=== PATIENT | male | born 1970 | race Two or more races ===

== ENCOUNTER 2017-04-27 10:23 | Emergency (ER) | payer SELFPAY ==
[2017-04-27 11:09] LABS: APPEARANCE HAZY (CLEAR); BILIRUBIN NEGATIVE (NEGATIVE); COLOR YELLOW (YELLOW); GLUCOSE NEGATIVE (NEGATIVE); KETONE NEGATIVE (NEGATIVE); NITRITE NEGATIVE (NEGATIVE); PROTEIN NEGATIVE (NEGATIVE)
[2017-04-27 11:11] LABS: BACTERIA MODERATE /hpf (NONE SEEN); EPITHELIAL CELLS 0-5 /hpf (0-5); RED CELLS - URINE 0-5 /hpf (0-5); WHITE CELLS - URINE 25-50 /hpf (0-5)
[2017-04-28 21:08] LABS: CHLAMYDIA TRACHOMATIS, NAA Negative (Negative)
[2017-05-03 18:06] LABS: AEROBE ID Final report (())
== END 2017-04-27 14:32 | disposition home or self-care (01) ==
LOC: D.ER 10:23
PROVIDERS: Family Medicine; Physician Assistant
DX: N34.2 Other urethritis (principal); N43.2 Other hydrocele; N45.3 Epididymo-orchitis

== ENCOUNTER 2019-07-27 21:31 | Inpatient (IN) | payer MEDICAID ==
[~2019-07-27] VITALS: Ht 167.6 cm; Wt 87.3 kg
[2019-07-27 22:29] LABS: BASOPHILS 0.2 % (0-2); EOSINOPHILS 0.1 % (0-7); HEMATOCRIT 31.4 % (42.0-54.0); HEMOGLOBIN 9.3 g/dL (13.5-17.5); IMMATURE GRANULOCYTES 0.2 % (0-5); LYMPHOCYTES 6.7 % (15-50); MCH 23.7 pg (26.0-34.0); MCHC 29.6 g/dL (31.0-37.0); MCV 79.9 fL (80.0-100.0); MEAN PLATELET VOLUME 10.5 fL (7.4-10.4); MONOCYTES 9.2 % (2-11); NEUTROPHILS 83.6 % (40-80); PLATELET COUNT 150 10x3/uL (130-400); RBC 3.93 10x6/uL (4.20-6.10); RDW 18.9 % (11.5-14.5); WBC 8.8 10x3/uL (4.8-10.8)
[2019-07-27 22:45] LABS: ANION GAP 15.3 mmol/L (8-16); BILIRUBIN - TOTAL 4.7 mg/dL (0.2-1.3); CALCIUM 8.6 mg/dL (8.5-10.1); CARBON DIOXIDE 23.7 mmol/L (21.0-32.0); CREATININE - SERUM 1.4 mg/dL (0.6-1.3)
--- NOTE | 2019-07-27 23:00 | NUR ---
PATIENT DISCONNECTED HIMSELF FROM THE MONITOR, UP WALKING IN HIS ROOM & IN THE OTERO, ENCOURAGED ON MANY OCCASSIONS TO FGO BACK TO HIS ROOM. nOT ABLE TO KEEP THE MONITOR ON THE PATIENT, NOT FOLLOWING DIRECTIONS. URINATED ON THE FLOOR, HE IS DRINKING FROM THE FAUCET IN HIS ROOM, ASKED THE PATIENT NO THE DRINK ANYTHING.
[2019-07-27 23:04] LABS: BILIRUBIN NEGATIVE (NEGATIVE); GLUCOSE NEGATIVE (NEGATIVE); KETONE NEGATIVE (NEGATIVE); NITRITE NEGATIVE (NEGATIVE); UROBILINOGEN 2 mg/dL (NORMAL)
[2019-07-27 23:06] LABS: BACTERIA MODERATE /hpf (NEGATIVE); EPITHELIAL CELLS 0-5 /hpf (0-5); RED CELLS - URINE RARE /hpf (0-5); WHITE CELLS - URINE 0-5 /hpf (NEGATIVE)
[2019-07-27 23:16] LABS: UDS - AMPHET NEGATIVE QUAL (NEGATIVE); UDS - BARB NEGATIVE QUAL (NEGATIVE); UDS - BENZO NEGATIVE QUAL (NEGATIVE); UDS - COCAINE NEGATIVE QUAL (NEGATIVE); UDS - OPIATE NEGATIVE QUAL (NEGATIVE); UDS - PCP NEGATIVE QUAL (NEGATIVE); UDS - THC POSITIVE QUAL (NEGATIVE)
[2019-07-27 23:30] LABS: MAGNESIUM - SERUM 1.7 mg/dL (1.8-2.4)
[2019-07-27 23:37] VITALS: BP 141/73
--- NOTE | 2019-07-27 23:55 | NUR ---
PT RESTING QUIETLY AT THIS MOMENT, LR INFUSING PER ORDER, ROCHEPHIN INFUSING PER ORDER, PATIENT IS ON THE MONITOR AT THIS TIME.
[2019-07-28] VITALS (18 sets, daily range): BP systolic 102–149; BP diastolic 48–89; Ht 167.6 cm; Wt 87.3 kg
--- NOTE | 2019-07-28 00:25 | NUR ---
PATIENT PULLED OUT HIS IV, NEW ONE ESTABLISHED. PATIENT GAGGING ON MEDICATION, BAG GIVEN, PATIENT IS SPITTING ON HIMSELF AND ON FLOOR.
--- NOTE | 2019-07-28 00:32 | NUR ---
ROCEPHIN INFUSION COMPLETED AT 0015
--- NOTE | 2019-07-28 01:39 | NUR ---
RECEIVED REPORT FROM BHARAT GIVENS AT 0010. RECEIVED TO UNIT AT 0030 ON STRETCHER. DISORIENTED X4. UNABLE TO ANSWER QUESTIONS. STARTED PULLING AT IV AND ATTEMPTING TO GET OOB. UNABLE TO REDIRECT AND UNABLE TO COMMUNICATE. REFUSED LACTULOSE. 2 EPISODES OF N/V UPON ARRIVAL. ZOFRAN GIVEN PER ORDERS. IV TO RT FA WITH LR AT 75CC/HR. Karthik SOLORION IN TO SEE PT. ASSESSMENT COMPLETED.
--- NOTE | 2019-07-28 03:00 | NUR ---
LAYING IN BED WITH EYES CLOSED. SITS UP AT TIMES. CONT TO BE CONFUSED AND NON VERBAL. LAB REPORTED POTASSIUM OF 1.7. BEATER WORKER HELPER LORENZO NOTIFIED WITH N.O FOR STAT REDRAW. WILL NOTIFY BEATER WORKER HELPER WITH RESULTS AND ORDERS.
[2019-07-28 03:12] LABS: BASOPHILS 0.3 % (0-2); EOSINOPHILS 0.3 % (0-7); HEMATOCRIT 26.7 % (42.0-54.0); HEMOGLOBIN 7.9 g/dL (13.5-17.5); IMMATURE GRANULOCYTES 0.3 % (0-5); MCH 23.6 pg (26.0-34.0); MCHC 29.6 g/dL (31.0-37.0); MCV 79.7 fL (80.0-100.0); MEAN PLATELET VOLUME 9.9 fL (7.4-10.4); MONOCYTES 11.3 % (2-11); NEUTROPHILS 73.8 % (40-80); PLATELET COUNT 117 10x3/uL (130-400); RBC 3.35 10x6/uL (4.20-6.10); RDW 19.1 % (11.5-14.5); WBC 7.1 10x3/uL (4.8-10.8)
[2019-07-28 03:20] LABS: APTT 45.9 SECONDS (22.8-39.4); INR 2.24 (0.85-1.17); PROTIME 24.5 SECONDS (11.6-15.0)
[2019-07-28 03:26] LABS: ALBUMIN 2.4 g/dL (3.4-5.0); ALKALINE PHOSPHATASE 84 U/L (30-120); ALT (SGPT) 21 U/L (10-68); BILIRUBIN - TOTAL 3.45 mg/dL (0.2-1.3); CALC OSMOLALITY 279 mosm/kg (275-300); CALCIUM 7.6 mg/dL (8.5-10.1); CARBON DIOXIDE 26.2 mmol/L (21.0-32.0); CHLORIDE - SERUM 103 mmol/L (98-107); CREATININE - SERUM 1.1 mg/dL (0.6-1.3); GLUCOSE 202 mg/dL (74-106); MAGNESIUM - SERUM 1.5 mg/dL (1.8-2.4); PHOSPHOROUS 1.9 mg/dL (2.5-4.9); PROTEIN - SERUM 7.4 g/dL (6.4-8.2); SODIUM 138 mmol/L (136-145); UREA NITROGEN 8 mg/dL (7-18); eGFR NON AFRICAN AMERICAN 76 mL/min (90-120)
[2019-07-28 03:30] LABS: POTASSIUM - SERUM 1.7 mmol/L (3.5-5.1)
[2019-07-28 13:43] LABS: HEMATOCRIT 26.7 % (42.0-54.0); HEMOGLOBIN 7.8 g/dL (13.5-17.5)
--- NOTE | 2019-07-28 18:18 | MORECARE ---
CASE MANAGEMENT DISCHARGE SUMMARY PATIENT: TEENA MAYO UNIT: [id number] ADM DATE: 07/27/19 AGE: 49 : 74 SEX: M ROOM/BED: D.2306 AUTHOR: DOUGLAS DOTSON PHYSICIAN: REFERRING PHYSICIAN: ADRI BALTAZAR MD DATE OF SERVICE: 07/28/19 Discharge Plan Patient Name: TEENA MAYO [facility] [facility] 1970 Planned Disposition: Home Anticipated Discharge Date: Discharge Date: Expected LOS: Initial Reviewer: [email or web address] Initial Review Date: 07/28/2019 Generated: 07/28/19 7:17 pm DCPIA - Discharge Planning Initial Assessment Updated by [email or web address]: Acacia Michelle on 07/28/19 6:17 pm * Is the patient Alert and Oriented? Yes * How many steps to enter\exit or inside your home? * PCP NO PCP * [facility] * Preadmission Environment Home Alone * ADLs Independent * Equipment None * List name and contact numbers for known caregivers / representatives who currently or will assist patient after discharge: ELHAM MAYO [facility] [phone] * Verbal permission to speak to the caregivers and representatives has been obtained from the patient. Yes * Community resources currently utilized None * Additional services required to return to the preadmission environment? No * Can the patient safely return to the preadmission environment? Yes * Has this patient been hospitalized within the prior 30 days at any hospital? No Patient Name: TEENA MAYO Page [phone] at 1818 All edits/amendments must be made on the electronic document DICTATION DATE: 07/28/191816 SECTION LEADER AND MACHINE SETTER: AMIE 07/28/191816 RPT#: [id number] DC DATE: STATUS: ADM IN [facility] [address] [place] [address] END OF REPORT
--- NOTE | 2019-07-28 18:28 | MORECARE ---
CASE MANAGEMENT DISCHARGE SUMMARY PATIENT: TEENA MAYO UNIT: [id number] ADM DATE: 07/27/19 AGE: 49 : 74 SEX: M ROOM/BED: D.2306 AUTHOR: MAURI,DOC PHYSICIAN: REFERRING PHYSICIAN: ADRI BALTAZAR MD DATE OF SERVICE: 07/28/19 Discharge Plan Patient Name: TEENA MAYO Facility: [facility]:[place] : 1970 Planned Disposition: Home Anticipated Discharge Date: Discharge Date: Expected LOS: Initial Reviewer: [email or web address] Initial Review Date: 07/28/2019 Generated: 07/28/19 7:27 pm Comments DCP- Discharge Planning Updated by [email or web address]: Acacia Michelle on 07/28/19 5:[address] Patient Name: TEENA MAYO Admission Status: ER Accout number: [id number] Admission Date: 07-27-2019 : 1970 Admission Diagnosis: Attending: ADRI BALTAZAR Current LOS: 1 Anticipated DC Date: Planned Disposition: Home Primary Insurance: UNINSURED DISCOUNT PLAN Discharge Planning Comments: CM met with patient at bedside after explaining CM role and obtaining verbal consent. Patient lives at home alone where he is independent with his care and plans to return there upon discharge. Patient feels this would be a safe discharge. CM discussed availability / needs of home health and medical equipment. Patient denies any discharge needs at this time. Patient states he will have his family drive him home upon discharge. CM contacted Robert with [employer] regarding insurance. He stated that he has not seen patient yet. Patient may need assistance with Medications upon discharge. CM will continue to follow and assist as needed with discharge planning / needs. Press Clippings Cutter And Paster: Acacia Michelle DCPIA - Discharge Planning Initial Assessment Updated by [email or web address]: Acacia Michelle on 07/28/19 6:17 pm * Is the patient Alert and Oriented? Yes * How many steps to enter\exit or inside your home? * PCP NO PCP * [facility] * Preadmission Environment Home Alone * ADLs Independent * Equipment None * List name and contact numbers for known caregivers / representatives who currently or will assist patient after discharge: ELHAM MAYO - SISTER - [phone] * Verbal permission to speak to the caregivers and representatives has been obtained from the patient. Yes * Community resources currently utilized None * Additional services required to return to the preadmission environment? No * Can the patient safely return to the preadmission environment? Yes * Has this patient been hospitalized within the prior 30 days at any hospital? No Last DP export: 07/28/19 5:18 p Patient Name: TEENA MAYO Page [phone] at 1828 All edits/amendments must be made on the electronic document DICTATION DATE: 07/28/191826 APPLICATION PROCESSOR: AMIE 07/28/191826 RPT#: [id number] DC DATE: STATUS: ADM IN [facility] [address] [place] [address] END OF REPORT
--- NOTE | 2019-07-28 19:00 | NUR ---
PT RESTING IN BED, DISORIENTED TO PLACE AND SITUATION. NO ACUTE DISTRESS NOTED AT THIS TIME. ASSESSMENT COMPLETE, SEE FLOWSHEET. PIV IN LT FOREARM, RT HAND, SEE IV FLOWSHEET. WILL CONTINUE TO MONITOR.
--- NOTE | 2019-07-28 21:00 | NUR ---
PT SITTING UP IN BED, FAMILY AT BEDSIDE. DISORIENTED TO SITUATION, PLEASANTLY CONFUSED. REORIENTED NEEDED.
[2019-07-28 21:22] LABS: HEMATOCRIT 25.7 % (42.0-54.0); HEMOGLOBIN 7.6 g/dL (13.5-17.5)
--- NOTE | 2019-07-28 23:00 | NUR ---
PT RESTING IN BED, NO ACUTE DISTRESS NOTED.
[2019-07-29] VITALS (17 sets, daily range): BP systolic 93–135; BP diastolic 43–99
--- NOTE | 2019-07-29 01:00 | NUR ---
PT RESTING IN BED, NO ACUTE DISTRESS NOTED AT THIS TIME. WILL CONTINUE TO MONITOR.
--- NOTE | 2019-07-29 03:00 | NUR ---
PT RESTING QUIETLY IN BED, NO ACUTE DISTRESS NOTED. WILL CONTINUE TO MONITOR.
--- NOTE | 2019-07-29 05:00 | NUR ---
PT RESTING IN BED, NO ACUTE DISTRESS NOTED.
[2019-07-29 05:01] LABS: BASOPHILS 0.6 % (0-2); EOSINOPHILS 7.1 % (0-7); HEMATOCRIT 22.2 % (42.0-54.0); IMMATURE GRANULOCYTES 0.2 % (0-5); LYMPHOCYTES 33.5 % (15-50); MCH 23.4 pg (26.0-34.0); MCHC 28.8 g/dL (31.0-37.0); MCV 81.3 fL (80.0-100.0); MEAN PLATELET VOLUME 10.3 fL (7.4-10.4); MONOCYTES 11.6 % (2-11); RBC 2.73 10x6/uL (4.20-6.10); RDW 19.9 % (11.5-14.5)
[2019-07-29 05:02] LABS: WBC 4.7 10x3/uL (4.8-10.8)
[2019-07-29 05:03] LABS: HEMOGLOBIN 6.4 g/dL (13.5-17.5); PLATELET COUNT 92 10x3/uL (130-400)
[2019-07-29 05:05] LABS: ALKALINE PHOSPHATASE 69 U/L (30-120); ALT (SGPT) 20 U/L (10-68); BILIRUBIN - TOTAL 2.76 mg/dL (0.2-1.3); CARBON DIOXIDE 20.8 mmol/L (21.0-32.0); CHLORIDE - SERUM 107 mmol/L (98-107); CREATININE - SERUM 0.9 mg/dL (0.6-1.3); PHOSPHOROUS 2.2 mg/dL (2.5-4.9); SODIUM 138 mmol/L (136-145); UREA NITROGEN 6 mg/dL (7-18); eGFR NON AFRICAN AMERICAN > 90 mL/min (90-120)
[2019-07-29 05:08] LABS: CALC OSMOLALITY 273 mosm/kg (275-300); GLUCOSE 91 mg/dL (74-106); MAGNESIUM - SERUM 2.1 mg/dL (1.8-2.4)
[2019-07-29 05:09] LABS: POTASSIUM - SERUM 2.4 mmol/L (3.5-5.1)
[2019-07-29 05:48] LABS: BASOPHILS 0.9 % (0-2); EOSINOPHILS 7.7 % (0-7); HEMATOCRIT 24.3 % (42.0-54.0); IMMATURE GRANULOCYTES 0.2 % (0-5); LYMPHOCYTES 32.5 % (15-50); MCH 23.7 pg (26.0-34.0); MCHC 29.6 g/dL (31.0-37.0); MCV 79.9 fL (80.0-100.0); MEAN PLATELET VOLUME 10.6 fL (7.4-10.4); MONOCYTES 10.7 % (2-11); PLATELET COUNT 101 10x3/uL (130-400); RBC 3.04 10x6/uL (4.20-6.10); RDW 19.6 % (11.5-14.5); WBC 4.7 10x3/uL (4.8-10.8)
[2019-07-29 05:50] LABS: HEMOGLOBIN 7.2 g/dL (13.5-17.5)
[2019-07-29 05:59] LABS: CALC OSMOLALITY 275 mosm/kg (275-300); CARBON DIOXIDE 22.2 mmol/L (21.0-32.0); CHLORIDE - SERUM 108 mmol/L (98-107); CREATININE - SERUM 0.9 mg/dL (0.6-1.3); GLUCOSE 93 mg/dL (74-106); SODIUM 139 mmol/L (136-145); UREA NITROGEN 6 mg/dL (7-18); eGFR NON AFRICAN AMERICAN > 90 mL/min (90-120)
[2019-07-29 06:04] LABS: PLATELET ESTIMATE NORMAL
[2019-07-29 06:07] LABS: CALCIUM 6.8 mg/dL (8.5-10.1); POTASSIUM - SERUM 2.6 mmol/L (3.5-5.1)
--- NOTE | 2019-07-29 06:14 | NUR ---
PAGEMerrill VENTURA APN REGARDING CRITICAL LAB VALUES.
--- NOTE | 2019-07-29 09:32 | NUR ---
Nutrition follow-up: Diet: REgular PO intake ~75% of breakfast Labs reviewed Wt: 148# Pt sleeping after breakfast; RDN did not disturb RDN following.
--- NOTE | 2019-07-29 13:29 | NUR ---
PT CONTINUES TO BE CONFUSED. FORGETS WHY HE IS IN AND HOSPITAL AND CAN'T GO HOME. BED ALARM TURNED ON. PT TRYING TO GET OUT OF BED. VSS. WILL CONTINUE TO MONITOR. CALLED PHARMACY TO SEND UP BANANA BAG.
[2019-07-29 13:33] LABS: HEMOGLOBIN 7.3 g/dL (13.5-17.5)
--- NOTE | 2019-07-29 17:52 | NUR ---
REPORT CALLED TO MONI ON MED 2. LAB IN TO DRAW POTASSIUM. WILL TRANSFER TO 2112.
--- NOTE | 2019-07-29 18:17 | NUR ---
PT ARRIVED TO FLOOR VIA WC. TRASNFERED SELF TO BED. USED URINAL. PT STATES HE HAS NO FURTHER NEEDS AT THIS TIME. BED LOW.C L IN REACH.
--- NOTE | 2019-07-29 18:26 | NUR ---
SPOKE WITH PHARMACIST AND THEY STATE PROTONIX DRIP IS NOT COMPATIBLE WITH BANANA BAG. THEY STATE TO WAIT TILL BANANA BAG IS FINISHED RUNNING THEN START NS 40K+ AND PROTONIX DRIP. I VERBALIZED UNDERSTANDING.
[2019-07-29 20:33] LABS: HEMATOCRIT 23.7 % (42.0-54.0)
[2019-07-29 20:57] LABS: HEMOGLOBIN 6.9 g/dL (13.5-17.5)
[2019-07-30 01:16] VITALS: BP 108/59
[2019-07-30 05:45] VITALS: BP 106/57
--- NOTE | 2019-07-30 07:00 | NUR ---
RECEIVED REPORT. ASSUMED CARE OF PATIENT. CALL LIGHT WITHING REACH. PATIENT RESTING IN BED ON RIGHT LATERAL SIDE. RESP EVEN AND UNLABORED. PATIENT EASILY AROUSED. NO DISTRESS. DENIES NEEDS.
[2019-07-30 07:11] LABS: BASOPHILS 0.9 % (0-2); EOSINOPHILS 7.2 % (0-7); HEMATOCRIT 28.3 % (42.0-54.0); IMMATURE GRANULOCYTES 0.2 % (0-5); MCH 24.4 pg (26.0-34.0); MCHC 30.4 g/dL (31.0-37.0); MCV 80.4 fL (80.0-100.0); MEAN PLATELET VOLUME 10.2 fL (7.4-10.4); MONOCYTES 13.3 % (2-11); NEUTROPHILS 50.4 % (40-80); RBC 3.52 10x6/uL (4.20-6.10); RDW 19.4 % (11.5-14.5); WBC 4.6 10x3/uL (4.8-10.8)
[2019-07-30 07:15] LABS: ALKALINE PHOSPHATASE 95 U/L (30-120); ALT (SGPT) 19 U/L (10-68); BILIRUBIN - TOTAL 2.57 mg/dL (0.2-1.3); CALCIUM 7.3 mg/dL (8.5-10.1); CARBON DIOXIDE 21.3 mmol/L (21.0-32.0); CHLORIDE - SERUM 109 mmol/L (98-107); CREATININE - SERUM 0.7 mg/dL (0.6-1.3); GLUCOSE 113 mg/dL (74-106); PHOSPHOROUS 1.7 mg/dL (2.5-4.9); PROTEIN - SERUM 6.2 g/dL (6.4-8.2); SODIUM 139 mmol/L (136-145); eGFR NON AFRICAN AMERICAN > 90 mL/min (90-120)
[2019-07-30 07:17] LABS: CALC OSMOLALITY 275 mosm/kg (275-300); UREA NITROGEN 4 mg/dL (7-18)
[2019-07-30 07:20] LABS: POTASSIUM - SERUM 2.4 mmol/L (3.5-5.1)
--- NOTE | 2019-07-30 07:21 | NUR ---
K+ CALLED FROM LAB, ELECTROLYTE PROTOCOL IMPLEMENTED.
[2019-07-30 07:29] LABS: HEMOGLOBIN 8.6 g/dL (13.5-17.5); PLATELET COUNT 80 10x3/uL (130-400)
[2019-07-30 07:49] LABS: PLATELET ESTIMATE DECREASED
[2019-07-30 08:53] LABS: BILIRUBIN NEGATIVE (NEGATIVE); GLUCOSE NEGATIVE (NEGATIVE); KETONE NEGATIVE (NEGATIVE); NITRITE NEGATIVE (NEGATIVE); SPECIFIC GRAVITY 1.005 (1.005-1.020); UROBILINOGEN 4 mg/dL (NORMAL)
[2019-07-30 09:04] VITALS: BP 118/57
--- NOTE | 2019-07-30 10:21 | NUR ---
K+ SUPPLEMENT #2 ADMINISTERED AT THIS TIME. NO DISTRESS. IV FLUIDS INFUSING ORDERED.
--- NOTE | 2019-07-30 13:30 | NUR ---
CALLED PHARMACY TO REQUEST MVI FOR INFUSION IT IS NOT AVAILABLE AT THIS TIME ON UNIT. PHARMACY TO HAVE FLUIDS TO UNIT SOON.
[2019-07-30 13:33] VITALS: BP 112/63
--- NOTE | 2019-07-30 16:22 | NUR ---
FSBS 100. NO INSULIN PER SLIDING SCALE.
[2019-07-30 20:00] VITALS: BP 123/51
[2019-07-31] VITALS: BP 128/60
[2019-07-31 04:00] VITALS: BP 113/62
[2019-07-31 05:59] LABS: BASOPHILS 0.7 % (0-2); EOSINOPHILS 6.5 % (0-7); HEMATOCRIT 30.5 % (42.0-54.0); HEMOGLOBIN 9.2 g/dL (13.5-17.5); IMMATURE GRANULOCYTES 0.2 % (0-5); LYMPHOCYTES 30.5 % (15-50); MCH 24.5 pg (26.0-34.0); MCHC 30.2 g/dL (31.0-37.0); MCV 81.1 fL (80.0-100.0); MONOCYTES 12.9 % (2-11); NEUTROPHILS 49.2 % (40-80); PLATELET COUNT 92 10x3/uL (130-400); RBC 3.76 10x6/uL (4.20-6.10); RDW 20.1 % (11.5-14.5); WBC 4.2 10x3/uL (4.8-10.8)
[2019-07-31 06:28] LABS: ALKALINE PHOSPHATASE 99 U/L (30-120); ALT (SGPT) 18 U/L (10-68); CALC OSMOLALITY 277 mosm/kg (275-300); CALCIUM 7.4 mg/dL (8.5-10.1); CARBON DIOXIDE 21.9 mmol/L (21.0-32.0); CHLORIDE - SERUM 111 mmol/L (98-107); CREATININE - SERUM 0.7 mg/dL (0.6-1.3); GLUCOSE 95 mg/dL (74-106); MAGNESIUM - SERUM 1.8 mg/dL (1.8-2.4); PHOSPHOROUS 1.8 mg/dL (2.5-4.9); POTASSIUM - SERUM 3.3 mmol/L (3.5-5.1); PROTEIN - SERUM 6.4 g/dL (6.4-8.2); SODIUM 141 mmol/L (136-145); UREA NITROGEN 5 mg/dL (7-18); eGFR NON AFRICAN AMERICAN > 90 mL/min (90-120)
--- NOTE | 2019-07-31 07:00 | NUR ---
RECEIVED REPORT. ASSUMED CARE OF PATIENT. CALL LIGHT WITHIN REACH. PATIENT RESTING WITH EYES CLOSED. RESP EVEN AND UNLABORED. IV FLUIDS INFUSING ORDERED. NO DISTRESS.
[2019-07-31 10:04] VITALS: BP 124/71
--- NOTE | 2019-07-31 11:30 | NUR ---
FSBS 133. NO INSULIN PER SLIDING SCALE. NO DISTRESS.
--- NOTE | 2019-07-31 12:20 | NUR ---
FAMILY AT BEDSIDE. CALL LIGHT WITHIN REACH. NO DISTRESS. CONSUMING NOON MEAL.
--- NOTE | 2019-07-31 12:27 | NUR ---
MONIKA CROWELL INITIATED THIS AM.
[2019-07-31] MEDS ORDERED: PROTONIX40 MG PO (12:28)
--- NOTE | 2019-07-31 13:40 | NUR ---
22 GAUGE IV REMOVED FROM LEFT FOREARM. CATHETER TIP INTACT. NO BLEEDING FROM SITE. 2X2 GAUZE APPLIED AND SECURED WITH BANDAID. TOLERATED IV REMOVAL WELL. PATIENT IS DISCHARGING TO HOME.
[2019-07-31 13:48] VITALS: BP 107/65
--- NOTE | 2019-07-31 13:52 | NUR ---
DISCHARGE INSTRUCTIONS PROVIDED TO PATIENT AT THIS TIME. PATIENT VERBALIZED UNDERSTANDING OF ALL INSTRUCTIONS PROVIDED. PATIENT IS CURRENTLY AWAITING FOR HIS FAMILY TO PICK HIM UP.
--- NOTE | 2019-07-31 13:58 | MORECARE ---
CASE MANAGEMENT DISCHARGE SUMMARY PATIENT: TEENA MAYO UNIT: [id number] ADM DATE: 07/27/19 AGE: 49 : 74 SEX: M ROOM/BED: D.4683 AUTHOR: MAURI,DOC PHYSICIAN: REFERRING PHYSICIAN: ADRI BALTAZAR MD DATE OF SERVICE: 07/31/19 Discharge Plan Patient Name: TEENA MAYO Facility: [facility]:[place] : 1970 Planned Disposition: Home Anticipated Discharge Date: Discharge Date: Expected LOS: Initial Reviewer: [email or web address] Initial Review Date: 07/28/2019 Generated: 07/31/19 2:58 pm Comments DCP- Discharge Planning Updated by [email or web address]: Acacia Michelle on 07/28/19 5:[address] Patient Name: TEENA MAYO Admission Status: ER Accout number: [id number] Admission Date: 07-27-2019 : 1970 Admission Diagnosis: Attending: ADRI BALTAZAR Current LOS: 1 Anticipated DC Date: Planned Disposition: Home Primary Insurance: UNINSURED DISCOUNT PLAN Discharge Planning Comments: CM met with patient at bedside after explaining CM role and obtaining verbal consent. Patient lives at home alone where he is independent with his care and plans to return there upon discharge. Patient feels this would be a safe discharge. CM discussed availability / needs of home health and medical equipment. Patient denies any discharge needs at this time. Patient states he will have his family drive him home upon discharge. CM contacted Robert with [employer] regarding insurance. He stated that he has not seen patient yet. Patient may need assistance with Medications upon discharge. CM will continue to follow and assist as needed with discharge planning / needs. Sheet Metal Superintendent: Acacia Michelle DCPIA - Discharge Planning Initial Assessment Updated by [email or web address]: Acacia Michelle on 07/28/19 6:17 pm * Is the patient Alert and Oriented? Yes * How many steps to enter\exit or inside your home? * PCP NO PCP * [facility] * Preadmission Environment Home Alone * ADLs Independent * Equipment None * List name and contact numbers for known caregivers / representatives who currently or will assist patient after discharge: ELHAM MAYO - SISTER - [phone] * Verbal permission to speak to the caregivers and representatives has been obtained from the patient. Yes * Community resources currently utilized None * Additional services required to return to the preadmission environment? No * Can the patient safely return to the preadmission environment? Yes * Has this patient been hospitalized within the prior 30 days at any hospital? No Last DP export: 07/28/19 5:28 p Patient Name: TEENA MAYO Page 84295 at 1358 All edits/amendments must be made on the electronic document DICTATION DATE: 07/31/19 1358 CULTURED MARBLE PRODUCTS MAKER: AMIE 07/31/19 1358 RPT#: [id number] DC DATE: STATUS: ADM IN [facility] [address] [place] [address] END OF REPORT
--- NOTE | 2019-07-31 14:05 | MORECARE ---
CASE MANAGEMENT DISCHARGE SUMMARY PATIENT: TEENA MAYO UNIT: [id number] ADM DATE: 07/27/19 AGE: 49 : 74 SEX: M ROOM/BED: D.6463 AUTHOR: MAURIDOC PHYSICIAN: REFERRING PHYSICIAN: ADRI BALTAZAR MD DATE OF SERVICE: 07/31/19 Discharge Plan Patient Name: TEENA MAYO Facility: [facility]:[place] : 1970 Planned Disposition: Home Anticipated Discharge Date: Discharge Date: Expected LOS: Initial Reviewer: [email or web address] Initial Review Date: 07/28/2019 Generated: 07/31/19 3:05 pm Comments DCP- Discharge Planning Updated by [email or web address]: Marilee Lemus on 07/31/19 12:[address] Patient Name: TEENA MAYO Encounter No: [id number] : 1970 Primary Insurance: MEDICAID [place] PENDING Anticipated DC Date: Planned Disposition: Home External Planned Provider: : DCP follow-up note: Patient and family in agreement with discharge plan. No changes to plan. GOOD RX CARD GIVEN. Case management will follow and assist as needed. Marilee Lemus DCP- Discharge Planning Updated by [email or web address]: Acacia Michelle on 07/28/19 5:[address] Patient Name: TEENA MAYO Admission Status: ER Accout number: [id number] Admission Date: 07-27-2019 : 1970 Admission Diagnosis: Attending: ADRI BALTAZAR Current LOS: 1 Anticipated DC Date: Planned Disposition: Home Primary Insurance: UNINSURED DISCOUNT PLAN Discharge Planning Comments: CM met with patient at bedside after explaining CM role and obtaining verbal consent. Patient lives at home alone where he is independent with his care and plans to return there upon discharge. Patient feels this would be a safe discharge. CM discussed availability / needs of home health and medical equipment. Patient denies any discharge needs at this time. Patient states he will have his family drive him home upon discharge. CM contacted Robert with [employer] regarding insurance. He stated that he has not seen patient yet. Patient may need assistance with Medications upon discharge. CM will continue to follow and assist as needed with discharge planning / needs. Plant Technician/Control Room Operator: Acacia Michelle DCPIA - Discharge Planning Initial Assessment Updated by [email or web address]: Acacia Michelle on 07/28/19 6:17 pm * Is the patient Alert and Oriented? Yes * How many steps to enter\exit or inside your home? * PCP NO PCP * [facility] * Preadmission Environment Home Alone * ADLs Independent * Equipment None * List name and contact numbers for known caregivers / representatives who currently or will assist patient after discharge: ELHAM MAYO - [facility] [phone] * Verbal permission to speak to the caregivers and representatives has been obtained from the patient. Yes * Community resources currently utilized None * Additional services required to return to the preadmission environment? No * Can the patient safely return to the preadmission environment? Yes * Has this patient been hospitalized within the prior 30 days at any hospital? No Last DP export: 07/31/19 12:58 p Patient Name: TEENA MAYO Page 25942 at 1405 All edits/amendments must be made on the electronic document DICTATION DATE: 07/31/19 1405 COMMUNITY SERVICE SPECIALIST: AMIE 07/31/19 1405 RPT#: [id number] DC DATE: STATUS: ADM IN [facility] [address] [place] [address] END OF REPORT
--- NOTE | 2019-07-31 15:40 | NUR ---
PATIENT LEFT UNIT VIA AMBULATORY. PATIENT DISCHARGED TO HOME. PATIENT LEFT UNIT WITH ALL PERSONAL BELONGINGS. PATIENTS SISTER WHO WORKS IN THE LAB, ELHAM, CAME TO MAKE SURE THAT THE PATIENT HAD LEFT. PATIENT LEFT NO PERSONAL BELONGINGS IN ROOM.
--- NOTE | 2019-07-31 17:09 | MORECARE ---
CASE MANAGEMENT DISCHARGE SUMMARY PATIENT: TEENA MAYO UNIT: [id number] ADM DATE: 07/27/19 AGE: 49 : 74 SEX: M ROOM/BED: D.2503 AUTHOR: MAURIDOC PHYSICIAN: REFERRING PHYSICIAN: ADRI BALTAZAR MD DATE OF SERVICE: 07/31/19 Discharge Plan Patient Name: TEENA MAYO Facility: [facility]:[place] : 1970 Planned Disposition: Home Anticipated Discharge Date: Discharge Date: 07/31/2019 Expected LOS: Initial Reviewer: [email or web address] Initial Review Date: 07/28/2019 Generated: 07/31/19 6:09 pm Comments DCP- Discharge Planning Updated by [email or web address]: Marilee Lemus on 07/31/19 12:[address] Patient Name: TEENA MAYO Encounter No: [id number] : 1970 Primary Insurance: MEDICAID [place] PENDING Anticipated DC Date: Planned Disposition: Home External Planned Provider: : DCP follow-up note: Patient and family in agreement with discharge plan. No changes to plan. GOOD RX CARD GIVEN. Case management will follow and assist as needed. Marilee Lemus DCP- Discharge Planning Updated by [email or web address]: Acacia Michelle on 07/28/19 5:[address] Patient Name: TEENA MAYO Admission Status: ER Accout number: [id number] Admission Date: 07-27-2019 : 1970 Admission Diagnosis: Attending: ADRI BALTAZAR Current LOS: 1 Anticipated DC Date: Planned Disposition: Home Primary Insurance: UNINSURED DISCOUNT PLAN Discharge Planning Comments: CM met with patient at bedside after explaining CM role and obtaining verbal consent. Patient lives at home alone where he is independent with his care and plans to return there upon discharge. Patient feels this would be a safe discharge. CM discussed availability / needs of home health and medical equipment. Patient denies any discharge needs at this time. Patient states he will have his family drive him home upon discharge. CM contacted Robert with [employer] regarding insurance. He stated that he has not seen patient yet. Patient may need assistance with Medications upon discharge. CM will continue to follow and assist as needed with discharge planning / needs. Spar Machine Operator Helper: Acacia Michelle DCPIA - Discharge Planning Initial Assessment Updated by [email or web address]: Acacia Michelle on 07/28/19 6:17 pm * Is the patient Alert and Oriented? Yes * How many steps to enter\exit or inside your home? * PCP NO PCP * [facility] * Preadmission Environment Home Alone * ADLs Independent * Equipment None * List name and contact numbers for known caregivers / representatives who currently or will assist patient after discharge: ELHAM MAYO - [facility] [phone] * Verbal permission to speak to the caregivers and representatives has been obtained from the patient. Yes * Community resources currently utilized None * Additional services required to return to the preadmission environment? No * Can the patient safely return to the preadmission environment? Yes * Has this patient been hospitalized within the prior 30 days at any hospital? No Last DP export: 07/31/19 1:05 p Patient Name: TEENA MAYO Page 78603 at 1709 All edits/amendments must be made on the electronic document DICTATION DATE: 07/31/191708 PRINT SHOP ASSISTANT: AMIE 07/31/191708 RPT#: [id number] MO DATE:07/31/19 STATUS: DIS IN [facility] [address] [place] [address] END OF REPORT
== END 2019-07-31 15:45 | disposition home or self-care (01) | DRG 640 ==
LOC: D.ER 21:31 → D.ICU 23:55 → D.M2 07-29 18:16
PROVIDERS: Emergency Medicine; ADMIT Internal Medicine Nephrology; ATTEND Internal Medicine Nephrology
DX: E87.6 Hypokalemia (principal); G92 Toxic encephalopathy; N17.9 Acute kidney failure, unspecified; N39.0 Urinary tract infection, site not specified; E83.42 Hypomagnesemia; E87.1 Hypo-osmolality and hyponatremia; E87.2 Acidosis; K72.90 Hepatic failure, unspecified without coma; D50.9 Iron deficiency anemia, unspecified; R73.9 Hyperglycemia, unspecified; K70.10 Alcoholic hepatitis without ascites

== ENCOUNTER 2019-08-22 23:33 | Inpatient (IN) | payer MEDICAID ==
[~2019-08-22] VITALS: Ht 167.6 cm; Wt 81.8 kg
[~2019-08-22 23:33] MED LIST: PROTONIX40 MG PO
[2019-08-23] VITALS (10 sets, daily range): BP systolic 98–121; BP diastolic 49–67; Ht 167.6 cm; Wt 81.8 kg
[2019-08-23 00:22] LABS: BILIRUBIN NEGATIVE (NEGATIVE); GLUCOSE NEGATIVE (NEGATIVE); KETONE NEGATIVE (NEGATIVE); NITRITE NEGATIVE (NEGATIVE); UROBILINOGEN NORMAL (NORMAL)
[2019-08-23 00:23] LABS: BASOPHILS 0.7 % (0-2); EOSINOPHILS 4.7 % (0-7); HEMATOCRIT 35.2 % (42.0-54.0); HEMOGLOBIN 10.8 g/dL (13.5-17.5); IMMATURE GRANULOCYTES 0.2 % (0-5); MCH 25.2 pg (26.0-34.0); MCHC 30.7 g/dL (31.0-37.0); MCV 82.2 fL (80.0-100.0); MEAN PLATELET VOLUME 9.8 fL (7.4-10.4); MONOCYTES 12.2 % (2-11); NEUTROPHILS 51.2 % (40-80); RBC 4.28 10x6/uL (4.20-6.10); RDW 22.4 % (11.5-14.5); WBC 5.5 10x3/uL (4.8-10.8)
[2019-08-23 00:26] LABS: PLATELET COUNT 122 10x3/uL (130-400)
[2019-08-23 00:39] LABS: UDS - AMPHET NEGATIVE QUAL (NEGATIVE); UDS - BARB NEGATIVE QUAL (NEGATIVE); UDS - BENZO NEGATIVE QUAL (NEGATIVE); UDS - COCAINE NEGATIVE QUAL (NEGATIVE); UDS - OPIATE NEGATIVE QUAL (NEGATIVE); UDS - PCP NEGATIVE QUAL (NEGATIVE); UDS - THC NEGATIVE QUAL (NEGATIVE)
[2019-08-23 00:54] LABS: ALBUMIN 2.7 g/dL (3.4-5.0); ALKALINE PHOSPHATASE 138 U/L (30-120); ALT (SGPT) 24 U/L (10-68); CALC OSMOLALITY 271 mosm/kg (275-300); CALCIUM 8.5 mg/dL (8.5-10.1); CARBON DIOXIDE 23.7 mmol/L (21.0-32.0); CHLORIDE - SERUM 102 mmol/L (98-107); CREATININE - SERUM 1.1 mg/dL (0.6-1.3); GLUCOSE 120 mg/dL (74-106); LIPASE 245 U/L (73-393); MAGNESIUM - SERUM 1.8 mg/dL (1.8-2.4); PROTEIN - SERUM 8.6 g/dL (6.4-8.2); SODIUM 137 mmol/L (136-145); UREA NITROGEN 4 mg/dL (7-18); eGFR NON AFRICAN AMERICAN 76 mL/min (90-120)
[2019-08-23 00:57] LABS: POTASSIUM - SERUM 2.3 mmol/L (3.5-5.1)
[2019-08-23 04:55] LABS: POTASSIUM - SERUM 2.9 mmol/L (3.5-5.1)
[2019-08-23 05:45] LABS: INR 1.82 (0.85-1.17); PROTIME 20.8 SECONDS (11.6-15.0)
[2019-08-23 05:48] LABS: CREATINE KINASE 1245 UL (21-232)
[2019-08-23 05:49] LABS: CKMB 4.1 U/L (0.0-3.6)
[2019-08-23 06:15] LABS: PHOSPHOROUS 2.5 mg/dL (2.5-4.9); URIC ACID 4.2 mg/dL (2.6-7.2)
--- NOTE | 2019-08-23 07:20 | NUR ---
PT ARIVED TO ROOM WITH ER STAFF. SELF TRANSFERED TO BED UP TO BATHROOM BY SELF. ALERT AND ORENTED PLESENT WITH STAFF. STATED NO HOME MEDS. IV TO RIGHT AC WITH BOLIS OF NS AND NS WITH 40 KCL AT 150 PER ORDERS.ORENTED TO ROOM AND CALL LIGHT GAVE NONSKID SCOKS.
--- NOTE | 2019-08-24 | NUR ---
194)REC'D CHGE OF SHIFT WALKING ROUNDS ON ENTERING ROOM STATES THIS THING HAS BEEN BEEPING FOR OVER AN HOUR.INSTRUCTED IV IS BEND OF ARM WHEN YOU BEND ARM FLUID HAS NO PLACE TO GO STATES THEY TOLD ME THAT EARLIER.WILL CONTINUE TO MONITOR FOR POSSIBLE DT'S. AND FOLLOW CURRENT PLAN OF CARE.
[2019-08-24 00:55] VITALS: BP 108/53
--- NOTE | 2019-08-24 05:11 | NUR ---
I have reviewed this patient and I concur with the Shift Assessment completed by the Licensed Practical Nurse today this shift.
[2019-08-24 06:20] LABS: HEMATOCRIT 28.6 % (42.0-54.0); MCH 24.9 pg (26.0-34.0); MCHC 29.7 g/dL (31.0-37.0); MCV 83.9 fL (80.0-100.0); MEAN PLATELET VOLUME 9.6 fL (7.4-10.4); RDW 22.5 % (11.5-14.5)
[2019-08-24 06:25] LABS: ALKALINE PHOSPHATASE 111 U/L (30-120); ALT (SGPT) 21 U/L (10-68); BILIRUBIN - TOTAL 1.41 mg/dL (0.2-1.3); CARBON DIOXIDE 23.8 mmol/L (21.0-32.0); CHLORIDE - SERUM 109 mmol/L (98-107); CREATININE - SERUM 0.9 mg/dL (0.6-1.3); GLUCOSE 99 mg/dL (74-106); SODIUM 141 mmol/L (136-145); eGFR NON AFRICAN AMERICAN > 90 mL/min (90-120)
[2019-08-24 06:34] LABS: HEMOGLOBIN 8.5 g/dL (13.5-17.5); PLATELET COUNT 149 10x3/uL (130-400); RBC 3.41 10x6/uL (4.20-6.10); WBC 3.4 10x3/uL (4.8-10.8)
[2019-08-24 06:39] LABS: UREA NITROGEN 7 mg/dL (7-18)
[2019-08-24 06:40] LABS: ALBUMIN 1.9 g/dL (3.4-5.0); CALC OSMOLALITY 278 mosm/kg (275-300); CREATINE KINASE 431 UL (21-232); PROTEIN - SERUM 6.2 g/dL (6.4-8.2)
[2019-08-24 06:41] LABS: POTASSIUM - SERUM 2.4 mmol/L (3.5-5.1)
[2019-08-24 06:42] LABS: CKMB 0.6 U/L (0.0-3.6)
--- NOTE | 2019-08-24 07:34 | NUR ---
PT RESTING IN BED WITH EYES CLOSED. RESP EVEN AND UNLABORED. DENIES PAIN AT THIS TIME. IV TO RIGHT AC WITH NS @ 100ML/HR INFUSING VIA PUMP. SITE WITHOUT REDNESS OR EDEMA. DENIES FURTHER NEEDS AT THIS TIME. CL WITHIN REACH. ENCOURAGED TO CALL WITH NEEDS. CONTINUE POC
[2019-08-24 07:54] LABS: EOSINOPHILS 4 % (0-7); LYMPHOCYTES 42 % (15-50); MONOCYTES 5 % (2-11); NEUTROPHILS 47 % (40-80); PLATELET ESTIMATE NORMAL
[2019-08-24 08:57] VITALS: BP 104/52
--- NOTE | 2019-08-24 09:05 | NUR ---
PT RESTING QUIETLY IN BED WITH EYES CLOSED. AWAKENS WITH NAME CALLED. RESP REMAIN EVEN AND UNLABORED. AM MEDS ADMINISTERED AT THIS TIME. DENIES FURTHER NEEDS AT THIS TIME. CL WITHIN REACH. ENCOURAGED TO CALL WITH NEEDS.
--- NOTE | 2019-08-24 11:27 | NUR ---
PT RESTING QUIETLY IN BED WITH EYES CLOSED. RESP EVEN AND UNLABORED. AWAKENS WITH NAME CALLED. POTASSIUM ADMINISTERED PER ELECTROLYTE PROTOCOL. DENIES FURTHER NEEDS AT THIS TIME. CL WITHIN REACH. ENCOURAGED TO CALL WITH NEEDS.
[2019-08-24 13:41] VITALS: BP 90/46
[2019-08-24 15:22] LABS: CREATINE KINASE 319 UL (21-232); POTASSIUM - SERUM 2.6 mmol/L (3.5-5.1)
[2019-08-24 15:23] LABS: CKMB 0.4 U/L (0.0-3.6)
--- NOTE | 2019-08-24 15:40 | NUR ---
DR. BALTAZAR PRESENT. REVIEWED LAB WORK. ORDERS RECIEVED FOR BANANA BAG Q 24 HOURS.
[2019-08-24 18:29] VITALS: BP 111/58
--- NOTE | 2019-08-24 20:25 | NUR ---
AMBULATING TO BR. ALERT AND ORIENTED X4. TELEMETRY SHOWS SR WITH RATE OF 62. DENIES PAIN. GEN WEAKNESS NOTED. BANANA BAG INFUSING IN RT AC @ 125 MLHR. RESP EVEN AND NONLABORED. NO DISTRESS. CL IN REACH.
[2019-08-24 21:28] LABS: CREATINE KINASE 251 UL (21-232)
[2019-08-24 21:33] LABS: CKMB 0.2 U/L (0.0-3.6)
[2019-08-24 21:49] VITALS: BP 115/59
[2019-08-25 01:49] VITALS: BP 115/62
--- NOTE | 2019-08-25 02:37 | NUR ---
HASNT SLEPT MUCH TONIGHT. DENIES PAIN. NO DISTRESS. NS @ 100 MLHR INFUSING IN RT AC. CL IN REACH.
[2019-08-25 06:01] VITALS: BP 121/73
[2019-08-25 07:44] LABS: BASOPHILS 0.9 % (0-2); EOSINOPHILS 6.7 % (0-7); HEMATOCRIT 29.2 % (42.0-54.0); HEMOGLOBIN 8.8 g/dL (13.5-17.5); LYMPHOCYTES 39.3 % (15-50); MCH 25.1 pg (26.0-34.0); MCHC 30.1 g/dL (31.0-37.0); MCV 83.4 fL (80.0-100.0); MEAN PLATELET VOLUME 9.5 fL (7.4-10.4); MONOCYTES 9.5 % (2-11); NEUTROPHILS 43.6 % (40-80); PLATELET COUNT 77 10x3/uL (130-400); RDW 22.7 % (11.5-14.5); WBC 3.3 10x3/uL (4.8-10.8)
[2019-08-25 07:47] LABS: ALBUMIN 1.8 g/dL (3.4-5.0); ALKALINE PHOSPHATASE 133 U/L (30-120); ALT (SGPT) 17 U/L (10-68); BILIRUBIN - TOTAL 1.23 mg/dL (0.2-1.3); CALCIUM 7.2 mg/dL (8.5-10.1); CARBON DIOXIDE 20.8 mmol/L (21.0-32.0); CHLORIDE - SERUM 112 mmol/L (98-107); CREATININE - SERUM 0.8 mg/dL (0.6-1.3); GLUCOSE 103 mg/dL (74-106); MAGNESIUM - SERUM 1.8 mg/dL (1.8-2.4); PHOSPHOROUS 2.1 mg/dL (2.5-4.9); PROTEIN - SERUM 6.3 g/dL (6.4-8.2); SODIUM 140 mmol/L (136-145); eGFR NON AFRICAN AMERICAN > 90 mL/min (90-120)
[2019-08-25 07:49] LABS: CALC OSMOLALITY 275 mosm/kg (275-300); UREA NITROGEN 5 mg/dL (7-18)
--- NOTE | 2019-08-25 08:00 | NUR ---
PATIENT EASILY AWAKENED TO VOICE. CL IN REACH. LAYING ON RIGHT SIDE. NO NEEDS AT THIS TIME. WCTM.
[2019-08-25 09:37] VITALS: BP 108/58
[2019-08-25 13:41] LABS: PLATELET ESTIMATE DECREASED
[2019-08-25 13:42] VITALS: BP 107/61
[2019-08-25 13:43] LABS: ANISOCYTOSIS OCC; HYPOCHROMASIA OCC
[2019-08-25 17:16] VITALS: BP 125/67
[2019-08-25 20:00] VITALS: BP 141/72
--- NOTE | 2019-08-25 22:01 | NUR ---
PT REPORTED THAT HE HAD 2 STOOLS WITH BLOOD IN THEM TODAY TO THIS NURSE HAT PLACED FOR COLECTING STOOL CALL TO HALL TENDER ORDER FOR OCCULT STOOL TO BE DONE. STOOL SENT TO LAB
[2019-08-26] VITALS: BP 128/65
[2019-08-26 04:00] VITALS: BP 111/51
--- NOTE | 2019-08-26 07:30 | NUR ---
PATIENT LAYING ON RIGHT SIDE. ASLEEP EASILY AWAKENED. CL IN REACH. NO NEEDS AT THIS TIME. WCTM
[2019-08-26 09:39] VITALS: BP 139/71
[2019-08-26 09:54] LABS: HEMATOCRIT 32.8 % (42.0-54.0); HEMOGLOBIN 9.9 g/dL (13.5-17.5); MCH 25.4 pg (26.0-34.0); MCHC 30.2 g/dL (31.0-37.0); MCV 84.1 fL (80.0-100.0); MEAN PLATELET VOLUME 9.6 fL (7.4-10.4); PLATELET COUNT 85 10x3/uL (130-400); WBC 2.8 10x3/uL (4.8-10.8)
[2019-08-26 10:36] LABS: ALBUMIN 2.2 g/dL (3.4-5.0); ALKALINE PHOSPHATASE 111 U/L (30-120); CALC OSMOLALITY 281 mosm/kg (275-300); CALCIUM 7.5 mg/dL (8.5-10.1); CARBON DIOXIDE 23.1 mmol/L (21.0-32.0); CHLORIDE - SERUM 111 mmol/L (98-107); GLUCOSE 90 mg/dL (74-106); MAGNESIUM - SERUM 1.8 mg/dL (1.8-2.4); PHOSPHOROUS 2.6 mg/dL (2.5-4.9); SODIUM 143 mmol/L (136-145); UREA NITROGEN 5 mg/dL (7-18); eGFR NON AFRICAN AMERICAN 85 mL/min (90-120)
[2019-08-26 10:42] LABS: ALT (SGPT) 22 U/L (10-68)
--- NOTE | 2019-08-26 11:04 | NUR ---
IV MAG AND K STARTED TO REPLACE ELECTROLYTE PROTOCOL. LAYING ON BACK IN BED. NO NEEDS AT THIS TIME. TM
[2019-08-26] MEDS ORDERED: POTASSIUM CHLO20 MEQ PO (11:50)
[2019-08-26 12:48] VITALS: BP 125/72
[2019-08-26 13:37] LABS: EOSINOPHILS 2 % (0-7); LYMPHOCYTES 35 % (15-50); MONOCYTES 9 % (2-11); NEUTROPHILS 53 % (40-80); PLATELET ESTIMATE DECREASED; ROULEAUX OCC
--- NOTE | 2019-08-26 14:49 | NUR ---
IV THERAPY DC'ED FROM LEFT AC TIP INTACT. PATIENT PROVIDED WITH A BUS PASS. HE HAD PREVIOUSLY STATED HE WAS GOING TO WALK TO HIS BROTHERS HOUSE. DISCHARGE INSTRUCTIONS GIVEN. PATIENT VERBALIZED UNDERSTANDING. WILL ALERT ME WHEN READY TO LEAVE.
--- NOTE | 2019-08-27 11:53 | MORECARE ---
CASE MANAGEMENT DISCHARGE SUMMARY PATIENT: TEENA MAYO UNIT: [id number] ADM DATE: 08/23/19 AGE: 49 : 74 SEX: M ROOM/BED: D.2204 AUTHOR: DOUGLAS DOTSON PHYSICIAN: REFERRING PHYSICIAN: ADRI BALTAZAR MD DATE OF SERVICE: 08/27/19 Discharge Plan Patient Name: TEENA MAYO [facility] : 1970 Planned Disposition: Home or Self Care Anticipated Discharge Date: Discharge Date: 08/26/2019 Expected LOS: Initial Reviewer: [email or web address] Initial Review Date: 08/26/2019 Generated: 08/27/19 12:53 pm Patient Name: TEENA MAYO Page 87389 at 1153 All edits/amendments must be made on the electronic document DICTATION DATE: 08/27/19 1153 GLASS FURNACE OPERATOR: AMIE 08/27/19 1153 RPT#: [id number] DC DATE:08/26/19 STATUS: DIS IN [facility] [address] [place] [address] END OF REPORT
== END 2019-08-26 20:07 | disposition home or self-care (01) | DRG 441 ==
LOC: D.ER 23:33 → D.MS 08-23 05:07 → OBSVTIME 08-23 05:07 → D.MS 08-23 05:09
PROVIDERS: Emergency Medicine; ADMIT Internal Medicine Nephrology; ATTEND Internal Medicine Nephrology
DX: K72.00 Acute and subacute hepatic failure without coma (principal); G92 Toxic encephalopathy; E44.0 Moderate protein-calorie malnutrition; N17.9 Acute kidney failure, unspecified; E87.6 Hypokalemia; K70.10 Alcoholic hepatitis without ascites

== ENCOUNTER 2019-08-27 23:44 | Emergency (ER) | payer MEDICAID ==
[~2019-08-27] VITALS: Ht 167.6 cm; Wt 85.9 kg
[~2019-08-27 23:44] MED LIST changes: +POTASSIUM CHLO20 MEQ PO
[2019-08-28 00:05] VITALS: Ht 167.6 cm; Wt 85.9 kg
[2019-08-28 00:23] LABS: BASOPHILS 0.6 % (0-2); EOSINOPHILS 4.3 % (0-7); HEMATOCRIT 35.3 % (42.0-54.0); HEMOGLOBIN 10.5 g/dL (13.5-17.5); IMMATURE GRANULOCYTES 0.2 % (0-5); LYMPHOCYTES 35.5 % (15-50); MCH 24.8 pg (26.0-34.0); MCHC 29.7 g/dL (31.0-37.0); MCV 83.3 fL (80.0-100.0); MEAN PLATELET VOLUME 9.1 fL (7.4-10.4); MONOCYTES 9.7 % (2-11); NEUTROPHILS 49.7 % (40-80); PLATELET COUNT 97 10x3/uL (130-400); RBC 4.24 10x6/uL (4.20-6.10); WBC 5.2 10x3/uL (4.8-10.8)
[2019-08-28 00:40] LABS: ALBUMIN 2.7 g/dL (3.4-5.0); ALKALINE PHOSPHATASE 122 U/L (30-120); ALT (SGPT) 22 U/L (10-68); BILIRUBIN - TOTAL 2.53 mg/dL (0.2-1.3); CALC OSMOLALITY 272 mosm/kg (275-300); CALCIUM 8.6 mg/dL (8.5-10.1); CARBON DIOXIDE 23.7 mmol/L (21.0-32.0); CHLORIDE - SERUM 103 mmol/L (98-107); CREATININE - SERUM 0.8 mg/dL (0.6-1.3); GLUCOSE 97 mg/dL (74-106); MAGNESIUM - SERUM 1.7 mg/dL (1.8-2.4); PROTEIN - SERUM 8.2 g/dL (6.4-8.2); SODIUM 138 mmol/L (136-145); UREA NITROGEN 4 mg/dL (7-18); eGFR NON AFRICAN AMERICAN > 90 mL/min (90-120)
[2019-08-28 00:48] LABS: POTASSIUM - SERUM 2.9 mmol/L (3.5-5.1)
[2019-08-28 00:52] LABS: PLATELET ESTIMATE DECREASED
[2019-08-28 02:56] LABS: BILIRUBIN NEGATIVE (NEGATIVE); GLUCOSE NEGATIVE (NEGATIVE); KETONE NEGATIVE (NEGATIVE); NITRITE NEGATIVE (NEGATIVE); UROBILINOGEN NORMAL (NORMAL)
[2019-08-28 03:05] LABS: UDS - AMPHET NEGATIVE QUAL (NEGATIVE); UDS - BARB NEGATIVE QUAL (NEGATIVE); UDS - BENZO POSITIVE QUAL (NEGATIVE); UDS - COCAINE NEGATIVE QUAL (NEGATIVE); UDS - OPIATE NEGATIVE QUAL (NEGATIVE); UDS - PCP NEGATIVE QUAL (NEGATIVE); UDS - THC NEGATIVE QUAL (NEGATIVE)
[2019-08-28 03:06] LABS: POTASSIUM - SERUM 3.5 mmol/L (3.5-5.1)
[2019-08-28 03:37] VITALS: BP 122/74
== END 2019-08-28 03:38 | disposition home or self-care (01) ==
LOC: D.ER 23:44
PROVIDERS: Emergency Medicine
DX: F10.129 Alcohol abuse with intoxication, unspecified (principal); Y90.6 Blood alcohol level of 120-199 mg/100 ml; D64.9 Anemia, unspecified; E87.6 Hypokalemia; E83.42 Hypomagnesemia; W19.XXXA Unspecified fall, initial encounter; Y93.9 Activity, unspecified; Y92.9 Unspecified place or not applicable

== ENCOUNTER 2019-09-25 01:23 | Emergency (ER) | payer MEDICAID ==
[~2019-09-25] VITALS: Ht 167.6 cm; Wt 84.1 kg
[2019-09-25 01:30] VITALS: Ht 167.6 cm; Wt 84.1 kg
[2019-09-25 01:48] LABS: BILIRUBIN NEGATIVE (NEGATIVE); GLUCOSE NEGATIVE (NEGATIVE); HEMATOCRIT 32.6 % (42.0-54.0); HEMOGLOBIN 10.1 g/dL (13.5-17.5); KETONE NEGATIVE (NEGATIVE); LYMPHOCYTES 36.4 % (15-50); MCH 26.6 pg (26.0-34.0); MEAN PLATELET VOLUME 9.7 fL (7.4-10.4); NEUTROPHILS 46.9 % (40-80); NITRITE NEGATIVE (NEGATIVE); PLATELET COUNT 100 10x3/uL (130-400); RBC 3.79 10x6/uL (4.20-6.10); RDW 20.4 % (11.5-14.5); SPECIFIC GRAVITY 1.005 (1.005-1.020); UROBILINOGEN NORMAL (NORMAL); WBC 3.8 10x3/uL (4.8-10.8)
[2019-09-25 02:04] LABS: ALBUMIN 2.7 g/dL (3.4-5.0); ALKALINE PHOSPHATASE 195 U/L (30-120); ALT (SGPT) 27 U/L (10-68); AMYLASE - SERUM 137 U/L (25-115); BILIRUBIN - TOTAL 2.19 mg/dL (0.2-1.3); CALC OSMOLALITY 271 mosm/kg (275-300); CALCIUM 8.6 mg/dL (8.5-10.1); CARBON DIOXIDE 27.5 mmol/L (21.0-32.0); CHLORIDE - SERUM 102 mmol/L (98-107); CREATININE - SERUM 0.8 mg/dL (0.6-1.3); GLUCOSE 142 mg/dL (74-106); LIPASE 231 U/L (73-393); PROTEIN - SERUM 8.2 g/dL (6.4-8.2); SODIUM 136 mmol/L (136-145); UREA NITROGEN 6 mg/dL (7-18); eGFR NON AFRICAN AMERICAN > 90 mL/min (90-120)
[2019-09-25 02:12] LABS: TROPONIN-I < 0.017 ng/mL (0.000-0.060)
[2019-09-25 02:23] LABS: POTASSIUM - SERUM 2.1 mmol/L (3.5-5.1)
[2019-09-25] MEDS ORDERED: NEXIUM40 MG PO (04:13)
[2019-09-25] MEDS ORDERED: K-DUR20 MEQ PO (04:15)
[2019-09-25 05:11] VITALS: BP 139/61
== END 2019-09-25 05:11 | disposition home or self-care (01) ==
LOC: D.ER 01:23
PROVIDERS: Surgery
DX: K29.20 Alcoholic gastritis without bleeding (principal); K74.60 Unspecified cirrhosis of liver; N20.0 Calculus of kidney; D61.818 Other pancytopenia; K76.6 Portal hypertension; R10.10 Upper abdominal pain, unspecified; R11.0 Nausea

== ENCOUNTER 2019-12-21 23:24 | Inpatient (IN) | payer OTHER ==
[~2019-12-21] VITALS: Ht 167.6 cm; Wt 85.5 kg
[~2019-12-21 23:24] MED LIST changes: +K-DUR20 MEQ PO; +NEXIUM40 MG PO
--- NOTE | 2019-12-22 00:31 | NUR ---
PT TO RADIOLOGY
[2019-12-22 00:38] LABS: UDS - AMPHET NEGATIVE QUAL (NEGATIVE); UDS - BARB NEGATIVE QUAL (NEGATIVE); UDS - BENZO NEGATIVE QUAL (NEGATIVE); UDS - COCAINE NEGATIVE QUAL (NEGATIVE); UDS - OPIATE NEGATIVE QUAL (NEGATIVE); UDS - PCP NEGATIVE QUAL (NEGATIVE); UDS - THC NEGATIVE QUAL (NEGATIVE)
[2019-12-22 00:46] LABS: BILIRUBIN NEGATIVE (NEGATIVE); GLUCOSE NEGATIVE (NEGATIVE); KETONE NEGATIVE (NEGATIVE); NITRITE NEGATIVE (NEGATIVE); UROBILINOGEN NORMAL (NORMAL)
--- NOTE | 2019-12-22 00:47 | NUR ---
PT RETURNED FROM RADIOLOGY.
[2019-12-22 00:48] LABS: BACTERIA NONE SEEN /hpf (NEGATIVE); EPITHELIAL CELLS NSEEN /hpf (0-5); RED CELLS - URINE 0-5 /hpf (0-5); WHITE CELLS - URINE 0-5 /hpf (NEGATIVE)
[2019-12-22 00:58] LABS: BASOPHILS 0.6 % (0-2); EOSINOPHILS 3.9 % (0-7); HEMATOCRIT 33.9 % (42.0-54.0); HEMOGLOBIN 10.8 g/dL (13.5-17.5); IMMATURE GRANULOCYTES 0.2 % (0-5); LYMPHOCYTES 22.3 % (15-50); MCH 27.8 pg (26.0-34.0); MCHC 31.9 g/dL (31.0-37.0); MCV 87.1 fL (80.0-100.0); MEAN PLATELET VOLUME 9.7 fL (7.4-10.4); MONOCYTES 11.2 % (2-11); NEUTROPHILS 61.8 % (40-80); PLATELET COUNT 81 10x3/uL (130-400); PLATELET ESTIMATE DECREASED; RBC 3.89 10x6/uL (4.20-6.10); RDW 17.7 % (11.5-14.5); WBC 4.7 10x3/uL (4.8-10.8)
[2019-12-22 01:00] VITALS: BP 138/71
--- NOTE | 2019-12-22 01:08 | NUR ---
PT GIVEN URINAL. DENIES ANY FURTHER NEEDS AT THIS TIME. CALL LIGHT WITHIN REACH. WILL CONTINUE TO MONITOR.
[2019-12-22 01:39] LABS: ALBUMIN 2.8 g/dL (3.4-5.0); ALKALINE PHOSPHATASE 162 U/L (30-120); ALT (SGPT) 18 U/L (10-68); BILIRUBIN - TOTAL 2.61 mg/dL (0.2-1.3); C-REACTIVE PROTEIN 1.4 mg/dL (0.0-0.9); CALC OSMOLALITY 275 mosm/kg (275-300); CALCIUM 8.6 mg/dL (8.5-10.1); CARBON DIOXIDE 23.6 mmol/L (21.0-32.0); CHLORIDE - SERUM 102 mmol/L (98-107); CREATINE KINASE 259 UL (21-232); GLUCOSE 168 mg/dL (74-106); LIPASE 92 U/L (73-393); MAGNESIUM - SERUM 1.7 mg/dL (1.8-2.4); SODIUM 137 mmol/L (136-145); THYROID STIMULATING HORMONE 2.14 uIU/mL (0.36-3.74); TROPONIN-I < 0.017 ng/mL (0.000-0.060); UREA NITROGEN 6 mg/dL (7-18); eGFR NON AFRICAN AMERICAN 85 mL/min (90-120)
[2019-12-22 01:40] LABS: CKMB 1.1 U/L (0.0-3.6); POTASSIUM - SERUM 2.1 mmol/L (3.5-5.1)
--- NOTE | 2019-12-22 02:22 | NUR ---
PT TO RADIOLOGY
--- NOTE | 2019-12-22 02:36 | NUR ---
PT RETURNED FROM RADIOLOGY.
--- NOTE | 2019-12-22 04:35 | NUR ---
SECOND BAG OF POTASSIUM CHLORIDE FINISHED AT THIS TIME.
[2019-12-22 05:22] VITALS: BP 142/62; BMI 27.7
[2019-12-22 09:12] VITALS: BP 115/54
--- NOTE | 2019-12-22 10:07 | NUR ---
PT TO IMAGING
--- NOTE | 2019-12-22 11:54 | NUR ---
I have reviewed this patient and I concur with the Shift Assessment completed by the Licensed Practical Nurse today this shift.
--- NOTE | 2019-12-22 13:20 | NUR ---
HUNG NEW IV POTASSIUM AND MAGNESIUM, PT RESTING COMFORTABLY IN BED. DENIES ANY NEEDS. WILL CONTINUE TO MONITOR.
[2019-12-22 13:21] VITALS: BP 115/58
[2019-12-22 13:52] VITALS: BMI 27.6
[2019-12-22 14:17] LABS: APTT 48.8 SECONDS (22.8-39.4); INR 1.88 (0.85-1.17); PROTIME 21.4 SECONDS (11.6-15.0)
--- NOTE | 2019-12-22 15:50 | NUR ---
HUNG IV POTASSIUM REPLACEMENT, BROUGHT NEW BAG OF FLUIDS. PT RESTING COMFORTABLY IN BED, AROUSES EASILY TO VOICE. DENIES ANY OTHER NEEDS. WILL CONTINUE TO MONITOR.
[2019-12-22 16:00] VITALS: BP 117/64
--- NOTE | 2019-12-22 17:49 | NUR ---
ADMINISTERED MEDICATION. GOT A CALL FROM ABHI GOODRICH TO TRANSFER PT FROM FLOOR TO THE UNIT.
--- NOTE | 2019-12-22 18:20 | NUR ---
HAVE MADE 2 PHONES CALLS TO DARA SHIN IN REFERENCE TO TRANSFERRING THIS PT, NO ANSWER. BHARAT, PEDIATRIC ONCOLOGIST CALLED DARA SHIN PRIOR TO LEAVING. STILL NO ROOM ASSIGNED.
[2019-12-22 18:23] LABS: MAGNESIUM - SERUM 2.5 mg/dL (1.8-2.4)
[2019-12-22 18:24] LABS: POTASSIUM - SERUM 2.5 mmol/L (3.5-5.1)
[2019-12-22 20:41] VITALS: BP 101/87; Ht 167.6 cm; Wt 85.5 kg
--- NOTE | 2019-12-23 01:18 | NUR ---
PT RECIEVED FROM MED 2 AT 1999. SEE ADMISSION ASSESSMENT FOR REFERENCE.
[2019-12-23 04:56] LABS: INR 1.82 (0.85-1.17); PROTIME 20.9 SECONDS (11.6-15.0)
[2019-12-23 05:05] LABS: ALBUMIN 2.2 g/dL (3.4-5.0); ALKALINE PHOSPHATASE 115 U/L (30-120); ALT (SGPT) 17 U/L (10-68); BILIRUBIN - TOTAL 2.49 mg/dL (0.2-1.3); CALC OSMOLALITY 284 mosm/kg (275-300); CARBON DIOXIDE 23.4 mmol/L (21.0-32.0); CHLORIDE - SERUM 111 mmol/L (98-107); CREATININE - SERUM 0.9 mg/dL (0.6-1.3); GLUCOSE 124 mg/dL (74-106); MAGNESIUM - SERUM 2.3 mg/dL (1.8-2.4); PROTEIN - SERUM 6.5 g/dL (6.4-8.2); SODIUM 144 mmol/L (136-145); UREA NITROGEN 5 mg/dL (7-18); eGFR NON AFRICAN AMERICAN > 90 mL/min (90-120)
[2019-12-23 05:10] LABS: CALCIUM 6.9 mg/dL (8.5-10.1)
[2019-12-23 05:11] LABS: POTASSIUM - SERUM 2.4 mmol/L (3.5-5.1)
[2019-12-23 05:35] LABS: BASOPHILS 0.8 % (0-2); EOSINOPHILS 7.6 % (0-7); HEMATOCRIT 29.3 % (42.0-54.0); HEMOGLOBIN 9.2 g/dL (13.5-17.5); IMMATURE GRANULOCYTES 0.3 % (0-5); LYMPHOCYTES 29.5 % (15-50); MCHC 31.4 g/dL (31.0-37.0); MEAN PLATELET VOLUME 10.4 fL (7.4-10.4); MONOCYTES 11.5 % (2-11); NEUTROPHILS 50.3 % (40-80); PLATELET COUNT 70 10x3/uL (130-400); RBC 3.29 10x6/uL (4.20-6.10); RDW 18.1 % (11.5-14.5); WBC 3.8 10x3/uL (4.8-10.8)
[2019-12-23 05:37] LABS: MCV 89.1 fL (80.0-100.0)
--- NOTE | 2019-12-23 08:05 | NUR ---
REPORT RECIEVED. PT SITTING UP ON SIDE OF THE BED. RR EVEN AND UNLABORED ON RA. DC PTS L AC PIV WITH CATH TIP FULLY INTACT. VASCULAR ACCESS ORDERS FOR MIDLINE. BED LOCKED AND IN LOWEST POSITION, CALL LIGHT WITHIN REACH. WILL CTM
[2019-12-23 08:41] VITALS: BP 160/96
--- NOTE | 2019-12-23 10:57 | NUR ---
Nutrition follow-up: Pt is now in ICU 2/2 low K; elevated NH3 of 132->ddown from 198 Labs reviewed WT: 188# Diet: low sodium with poor po intake at this time Banana bag RDN following.
[2019-12-23 11:36] VITALS: BP 129/74
--- NOTE | 2019-12-23 11:45 | NUR ---
MIDLINE PLACED IN L UPPER ARM X1 ATTEMPT. WILL CTM
[2019-12-23 14:10] LABS: ALPHA FETOPROTEIN -(TUMOR MRK) 6.9 ng/mL (0.0-8.3)
[2019-12-23 16:42] VITALS: BP 127/85
--- NOTE | 2019-12-23 21:00 | NUR ---
PT LYING IN BED, NO SX OF DISTRESS, MIDLINE IN LEFT UPPER ARM, NS AT 125. PT BROTHER CALLED FOR INFORMATION AND DID NOT HAVE CODE, EXPLAINED TO PT THAT I AM UNABLE TO PROVIDE INFORMATION BUT WILL TRANSFER HIM AFTER GETTING PT APPROVAL. NO OTHER NEEDS AT THIS TIME. CONTINUE WITH PLAN OF CARE
--- NOTE | 2019-12-24 04:37 | NUR ---
I have reviewed this patient and I concur with the Shift Assessment completed by the Licensed Practical Nurse today this shift.
[2019-12-24 05:15] LABS: BASOPHILS 0.7 % (0-2); HEMOGLOBIN 9.3 g/dL (13.5-17.5); LYMPHOCYTES 29.2 % (15-50); MCH 27.9 pg (26.0-34.0); MCV 90.1 fL (80.0-100.0); MEAN PLATELET VOLUME 9.6 fL (7.4-10.4); MONOCYTES 10.1 % (2-11); PLATELET COUNT 67 10x3/uL (130-400); RBC 3.33 10x6/uL (4.20-6.10); WBC 4.2 10x3/uL (4.8-10.8)
[2019-12-24 05:36] LABS: ALBUMIN 2.2 g/dL (3.4-5.0); ALKALINE PHOSPHATASE 127 U/L (30-120); ALT (SGPT) 17 U/L (10-68); BILIRUBIN - TOTAL 2.14 mg/dL (0.2-1.3); CALC OSMOLALITY 280 mosm/kg (275-300); CALCIUM 7.3 mg/dL (8.5-10.1); CARBON DIOXIDE 22.8 mmol/L (21.0-32.0); CHLORIDE - SERUM 111 mmol/L (98-107); CREATININE - SERUM 0.9 mg/dL (0.6-1.3); GLUCOSE 123 mg/dL (74-106); PROTEIN - SERUM 6.5 g/dL (6.4-8.2); SODIUM 142 mmol/L (136-145); UREA NITROGEN 4 mg/dL (7-18); eGFR NON AFRICAN AMERICAN > 90 mL/min (90-120)
[2019-12-24 05:47] LABS: PLATELET ESTIMATE DECREASED
[2019-12-24 05:52] LABS: MAGNESIUM - SERUM 1.7 mg/dL (1.8-2.4); POTASSIUM - SERUM 2.7 mmol/L (3.5-5.1)
--- NOTE | 2019-12-24 05:56 | NUR ---
PT K+ IS 2.7 AND MAG IS 1.7. REPLETE PER PROTOCOL CONTINUE WITH PLAN OF CARE
[2019-12-24 09:30] VITALS: BP 122/70
--- NOTE | 2019-12-24 09:48 | NUR ---
IN PT ROOM GIVING MORNING MEDS, NOTICED 06 DOSE OF KDUR AND MAG OX WERE STILL SITTING ON THE BEDSIDE TABLE. WOKE PT AND ADMINISTERED ALL MEDS. WILL GIVE SECOND DOSE ORDERED PER THIS DOSE TIME. BREATH SOUNDS CLEAR BILAT. ABDOMEN DISTENDED. IV TO LEFT UPPER ARM PATENT, DRESSING CDI. BED LOW, CALL LIGHT IN REACH. NO OTHER NEEDS AT THIS TIME.
[2019-12-24 14:10] VITALS: BP 133/70
[2019-12-24 18:04] VITALS: BP 125/67
--- NOTE | 2019-12-24 19:00 | NUR ---
BEDSIDE REPORT RECEIVED AND CARE OF PT ASSUMED. PT LYING IN LOW NOVAK'S POSITION WITH EYES CLOSED. IV TO LEFT UPPER ARM PATENT WITH NS W/ 40 KCL INFUSING AT 125 ML/HR. WILL MONITOR FOR NEEDS.
--- NOTE | 2019-12-24 20:41 | NUR ---
HS MEDICATIONS GIVEN. WILL CONTINUE TO MONITOR FOR NEEDS.
[2019-12-24 20:56] VITALS: BP 129/70
--- NOTE | 2019-12-24 21:05 | NUR ---
PT OPENED DOOR AND WAS COVERED WITH BLOOD AND DRIPPING BLOOD INTO THE HALLWAY...IV HAD COME DISCONNECTED. RE-CONNECTED IV AND CHANGED GOWN AND ALL BEDDING.
--- NOTE | 2019-12-24 21:30 | NUR ---
PT WITH NOSEBLEED...GAVE COLD WET CLOTH.
--- NOTE | 2019-12-24 22:56 | NUR ---
RE-CHECKED POTASSIUM AND MAG LEVEL: K+ NOW 3.1 REQUIRING COVERAGE WITH 40 MEQ K DUR PO. MAG LEVEL 1.7 REQUIRING COVERAGE WITH 400 MG PO Q4 HR X2 DOSES.
[2019-12-24 23:18] LABS: MAGNESIUM - SERUM 1.7 mg/dL (1.8-2.4); POTASSIUM - SERUM 3.1 mmol/L (3.5-5.1)
--- NOTE | 2019-12-24 23:28 | NUR ---
GAVE 400 MG MAG OX PO AND 40 MEQ K DUR PO PER THE ELECTROLYTE PROTOCOL.
[2019-12-25 00:01] VITALS: BP 146/72
[2019-12-25 05:46] LABS: BASOPHILS 0.3 % (0-2); EOSINOPHILS 4.7 % (0-7); HEMATOCRIT 30.6 % (42.0-54.0); HEMOGLOBIN 9.5 g/dL (13.5-17.5); LYMPHOCYTES 22.4 % (15-50); MCH 27.9 pg (26.0-34.0); MEAN PLATELET VOLUME 10.7 fL (7.4-10.4); MONOCYTES 9.3 % (2-11); NEUTROPHILS 63.3 % (40-80); PLATELET COUNT 76 10x3/uL (130-400); RDW 18.2 % (11.5-14.5); WBC 3.2 10x3/uL (4.8-10.8)
[2019-12-25 06:13] LABS: ALBUMIN 2.2 g/dL (3.4-5.0); ALKALINE PHOSPHATASE 118 U/L (30-120); ALT (SGPT) 18 U/L (10-68); BILIRUBIN - TOTAL 2.04 mg/dL (0.2-1.3); CALC OSMOLALITY 283 mosm/kg (275-300); CALCIUM 7.2 mg/dL (8.5-10.1); CARBON DIOXIDE 21.3 mmol/L (21.0-32.0); CHLORIDE - SERUM 112 mmol/L (98-107); CREATININE - SERUM 0.8 mg/dL (0.6-1.3); GLUCOSE 94 mg/dL (74-106); MAGNESIUM - SERUM 1.7 mg/dL (1.8-2.4); PROTEIN - SERUM 6.3 g/dL (6.4-8.2); SODIUM 144 mmol/L (136-145); UREA NITROGEN 3 mg/dL (7-18); eGFR NON AFRICAN AMERICAN > 90 mL/min (90-120)
[2019-12-25 13:17] VITALS: BP 116/63
[2019-12-25 18:52] VITALS: BP 130/66
--- NOTE | 2019-12-25 19:50 | NUR ---
LYING IN BED. REQUESTS SANDWICH. INSTRUCTED OF NPO AFTER MIDNIGHT AND HE VERBALIZED UNDERSTANDING. ALERT AND ORIENTED X1, SELF. CONFUSED. ABD IS DISTENDED AND FIRM. REPORTS DIARRHEA. TELEMTRY SHOWS SR WITH RATE OF 68. RATES PAIN IN AVD 5. AMBULATORY. NS WITH 40 MEQ KCL @ 125 ML/HR INFUSING IN LT UPPER ARM. SR ELEVATED X2. CL IN REACH.
[2019-12-25 22:01] VITALS: BP 123/52
--- NOTE | 2019-12-26 03:12 | NUR ---
SITTING UP IN BED WATCHING TV. NO DISTRESS. CL IN REACH.
[2019-12-26 03:55] VITALS: BP 112/64
[2019-12-26 05:13] LABS: BASOPHILS 0.3 % (0-2); EOSINOPHILS 5.4 % (0-7); HEMATOCRIT 29.1 % (42.0-54.0); HEMOGLOBIN 8.7 g/dL (13.5-17.5); LYMPHOCYTES 28.7 % (15-50); MCH 27.4 pg (26.0-34.0); MCHC 29.9 g/dL (31.0-37.0); MCV 91.5 fL (80.0-100.0); MONOCYTES 10.9 % (2-11); NEUTROPHILS 54.7 % (40-80); PLATELET COUNT 75 10x3/uL (130-400); RBC 3.18 10x6/uL (4.20-6.10); WBC 3.5 10x3/uL (4.8-10.8)
[2019-12-26 05:25] LABS: ALKALINE PHOSPHATASE 116 U/L (30-120); ALT (SGPT) 17 U/L (10-68); BILIRUBIN - TOTAL 1.51 mg/dL (0.2-1.3); CALC OSMOLALITY 283 mosm/kg (275-300); CALCIUM 7.5 mg/dL (8.5-10.1); CARBON DIOXIDE 20.8 mmol/L (21.0-32.0); CHLORIDE - SERUM 114 mmol/L (98-107); CREATININE - SERUM 0.9 mg/dL (0.6-1.3); GLUCOSE 127 mg/dL (74-106); MAGNESIUM - SERUM 1.8 mg/dL (1.8-2.4); POTASSIUM - SERUM 3.7 mmol/L (3.5-5.1); SODIUM 143 mmol/L (136-145); UREA NITROGEN 3 mg/dL (7-18); eGFR NON AFRICAN AMERICAN > 90 mL/min (90-120)
[2019-12-26 05:27] LABS: PLATELET ESTIMATE DECREASED
[2019-12-26 05:32] LABS: APTT 50.3 SECONDS (22.8-39.4); INR 1.96 (0.85-1.17); PROTIME 22.1 SECONDS (11.6-15.0)
--- NOTE | 2019-12-26 06:05 | NUR ---
RESTING WITH EYES CLOSED. RESP NONLABORED. HAS SLEPT WELL THIS SHIFT. NO DISTRESS. CL IN REACH.
[2019-12-26 09:10] VITALS: BP 91/41
--- NOTE | 2019-12-26 11:03 | NUR ---
RESTING IN BED, NPO FOR BIOPSY, MVI INFUSING, CONT TO MONITOR
[2019-12-26 11:54] VITALS: BP 99/46
[2019-12-26 16:22] VITALS: BP 110/63
[2019-12-26 20:00] VITALS: BP 119/60
--- NOTE | 2019-12-26 20:00 | NUR ---
PT LYING IN BED SLEEPING WITHOUT DISTRESS, AWAKENS WITH VERBAL STIMULI. AOX4. IV LEFT ARM INFUSING NS WITH 40K @ 125. DENIES NEEDS AT THIS TIME. CL IN REACH, WILL CTM
[2019-12-27] VITALS: BP 123/66
--- NOTE | 2019-12-27 00:30 | NUR ---
PT SITTING UP IN BED WATCHING TV. HAS BEEN UP AMBULATING TO BATHROOM SEVERAL TIMES TONIGHT WITH DIARRHEA. PROVIDED LEMON ALAKANUK SODA. DENIES OTHER NEEDS AT THIS TIME. CL IN REACH, WILL CTM
--- NOTE | 2019-12-27 03:16 | NUR ---
PT LYING IN BED SLEEPING WITHOUT DISTRESS, WILL CTM
[2019-12-27 04:00] VITALS: BP 127/64
[2019-12-27 05:39] LABS: INR 1.91 (0.85-1.17); PROTIME 21.6 SECONDS (11.6-15.0)
[2019-12-27 05:49] LABS: ALBUMIN 2.1 g/dL (3.4-5.0); ALKALINE PHOSPHATASE 120 U/L (30-120); ALT (SGPT) 15 U/L (10-68); BILIRUBIN - TOTAL 1.29 mg/dL (0.2-1.3); CALC OSMOLALITY 285 mosm/kg (275-300); CALCIUM 7.2 mg/dL (8.5-10.1); CARBON DIOXIDE 23.7 mmol/L (21.0-32.0); CHLORIDE - SERUM 114 mmol/L (98-107); CREATININE - SERUM 0.8 mg/dL (0.6-1.3); GLUCOSE 90 mg/dL (74-106); MAGNESIUM - SERUM 1.7 mg/dL (1.8-2.4); POTASSIUM - SERUM 3.5 mmol/L (3.5-5.1); PROTEIN - SERUM 6.2 g/dL (6.4-8.2); SODIUM 145 mmol/L (136-145); eGFR NON AFRICAN AMERICAN > 90 mL/min (90-120)
[2019-12-27 05:51] LABS: UREA NITROGEN 4 mg/dL (7-18)
[2019-12-27 05:59] LABS: BASOPHILS 0.3 % (0-2); EOSINOPHILS 6.4 % (0-7); HEMATOCRIT 30.2 % (42.0-54.0); HEMOGLOBIN 9.3 g/dL (13.5-17.5); IMMATURE GRANULOCYTES 0.3 % (0-5); LYMPHOCYTES 26.3 % (15-50); MCH 28.2 pg (26.0-34.0); MCHC 30.8 g/dL (31.0-37.0); MCV 91.5 fL (80.0-100.0); MEAN PLATELET VOLUME 9.4 fL (7.4-10.4); MONOCYTES 11.3 % (2-11); NEUTROPHILS 55.4 % (40-80); PLATELET COUNT 70 10x3/uL (130-400); WBC 3.3 10x3/uL (4.8-10.8)
[2019-12-27 08:00] VITALS: BP 121/59
[2019-12-27 08:24] LABS: PLATELET ESTIMATE DECREASED
--- NOTE | 2019-12-27 09:00 | NUR ---
PT SITTING UP IN BED, A&O X4. PIV IN LEFT UPPER ARM, PATENT, NO REDNESS OR SWELLING. PT ABLE TO AMBULATE WITH ONE PERSON ASSIST. TELEMETRY IN PLACE, 68 SR WITH 1ST DEGREE BLOCK. C/O OF SORENESS IN ABD, FREQUENT BM'S. EDUCATED PT ON LACTULOSE MED AND FREQUENT STOOL. EDUCATED PT ON CL AND NEEDS. BED LOW, RAILS X2. CL IN REACH, VERBALIZED UNDERSTANDING. WILL CONTINUE TO MONITOR.
--- NOTE | 2019-12-27 11:15 | NUR ---
ASSISTED PT TO CHAIR FOR LUNCH. EDUCATED PT ON IMPORTANCE OF STAYING IN CHAIR LONG CAN BE TOLERATED PER MD ORDERS, VERBALIZED UNDERSTANDING. CHAIR ALARM ON, CL IN REACH. WILL CONTINUE TO MONITOR.
--- NOTE | 2019-12-27 11:45 | NUR ---
ASSISTED PT TO BR, ONE PERSON ASSIST. BM, DAMIÁN, DANIELLE, PT TOLERATED WELL. ASSISTED TO BED, BED LOW, RAILS X2. CL IN REACH. WILL CONTINUE TO MONITOR.
[2019-12-27 13:31] VITALS: BP 129/61
--- NOTE | 2019-12-27 14:22 | MORECARE ---
CASE MANAGEMENT DISCHARGE SUMMARY PATIENT: TEENA MAYO UNIT: [id number] ADM DATE: 12/22/19 AGE: 49 : 74 SEX: M ROOM/BED: D.2214 AUTHOR: DOUGLAS DOTSON PHYSICIAN: REFERRING PHYSICIAN: MJ CÁRDENAS MD DATE OF SERVICE: 12/27/19 Discharge Plan Patient Name: TEENA MAYO Facility: [facility]:[place] : 1970 Planned Disposition: Home or Self Care Anticipated Discharge Date: Discharge Date: Expected LOS: Initial Reviewer: [email or web address] Initial Review Date: 12/22/2019 Generated: 12/27/19 3:21 pm DCPIA - Discharge Planning Initial Assessment Updated by [email or web address]: Tamar Yang on 12/27/19 2:20 pm * Is the patient Alert and Oriented? Yes * How many steps to enter\exit or inside your home? * PCP none * Pharmacy [facility] [address] * Preadmission Environment Home Alone * ADLs Independent * Equipment None * List name and contact numbers for known caregivers / representatives who currently or will assist patient after discharge: RADHA (SISTER) [phone] ELHAM (SISTER) [phone] * Verbal permission to speak to the caregivers and representatives has been obtained from the patient. N/A * Community resources currently utilized None * Additional services required to return to the preadmission environment? Yes * Can the patient safely return to the preadmission environment? Yes * Has this patient been hospitalized within the prior 30 days at any hospital? No Patient Name: TEENA MAYO Page 11985 at 1422 All edits/amendments must be made on the electronic document DICTATION DATE: 12/27/19 142 DIRECTOR ORACLE DATABASE: AMIE 12/27/19 142 RPT#: [id number] DC DATE: STATUS: ADM IN [facility] [address] [place] [address] END OF REPORT
--- NOTE | 2019-12-27 14:31 | MORECARE ---
CASE MANAGEMENT DISCHARGE SUMMARY PATIENT: TEENA MAYO UNIT: [id number] ADM DATE: 12/22/19 AGE: 49 : 74 SEX: M ROOM/BED: D.2214 AUTHOR: DOUGLAS DOTSON PHYSICIAN: REFERRING PHYSICIAN: MJ CÁRDENAS MD DATE OF SERVICE: 12/27/19 Discharge Plan Patient Name: TEENA MAYO Facility: [facility]:[place] : 1970 Planned Disposition: Home or Self Care Anticipated Discharge Date: Discharge Date: Expected LOS: Initial Reviewer: [email or web address] Initial Review Date: 12/22/2019 Generated: 12/27/19 3:30 pm Comments DCP- Discharge Planning Updated by [email or web address]: Tamar Yang on 12/27/19 1:[address] Patient Name: TEENA MAYO Admission Status: ER Accout number: [id number] Admission Date: 12-22-2019 : 1970 Admission Diagnosis: Attending: REDD Current LOS: 5 Anticipated DC Date: Planned Disposition: Home or Self Care Primary Insurance: [employer] MANAGED MEDICAID Discharge Planning Comments: CM met with patient to complete initial dc planning assessment. CM educated patient on the CM role and verbal consent given by patient to complete assessment. Patient lives at home by himself where he stated he was independent with his care. At discharge patient plans to return home and feels this is a safe discharge. CM discussed availability of home health, rehab services, and medical equipment. He is very slow to respond to my questions. He said he has 2 sisters and one might could pick him up when he is discharged, but he is unsure. He does not have a PCP either. We will see how he progresses, he might need some rehab. Patient denied known discharge needs at this time. CM will continue to follow and will assist as needed with dc plans/needs. Material Requirements Worker: Tamar Yang DCPIA - Discharge Planning Initial Assessment Updated by [email or web address]: Tamar Yang on 12/27/19 2:20 pm * Is the patient Alert and Oriented? Yes * How many steps to enter\exit or inside your home? * PCP none * Pharmacy [facility] [address] * Preadmission Environment Home Alone * ADLs Independent * Equipment None * List name and contact numbers for known caregivers / representatives who currently or will assist patient after discharge: RADHA (SISTER) [phone] ELHAM (SISTER) [phone] * Verbal permission to speak to the caregivers and representatives has been obtained from the patient. N/A * Community resources currently utilized None * Additional services required to return to the preadmission environment? Yes * Can the patient safely return to the preadmission environment? Yes * Has this patient been hospitalized within the prior 30 days at any hospital? No Last DP export: 12/27/19 1:21 p Patient Name: TEENA MAYO Page [phone] at 1431 All edits/amendments must be made on the electronic document DICTATION DATE: 12/27/191429 EXCEL ANALYST: MAIE 12/27/191429 RPT#: [id number] DC DATE: STATUS: ADM IN [facility] [address] [place] [address] END OF REPORT
--- NOTE | 2019-12-27 14:54 | NUR ---
Nutrition follow-up: Pt now on a regular diet with po intake 75-100% of meals Labs reviewed Wt: 188# +BM PO intake improved RDN following.
--- NOTE | 2019-12-27 15:39 | NUR ---
ASSISTED PT FROM CHAIR TO BED. PT DENIES PAIN. BED LOW, CL IN REACH. WILL CONTINUE TO MONITOR.
[2019-12-27 16:46] VITALS: BP 124/61
[2019-12-27 20:00] VITALS: BP 115/63
--- NOTE | 2019-12-27 20:00 | NUR ---
PT LYING IN BED RESTING WITHOUT DISTRESS, AOX4. IV LEFT UPPER ARM INFUSING NS KCL 40MEQ @ 125. PROVIDED WATER. DENIES OTHER NEEDS AT THIS TIME. CL IN REACH, WILL CTM
--- NOTE | 2019-12-28 01:00 | NUR ---
PT ASSISTED WITH SHOWER SET UP, DID CHG BATH FOR POSSIBLE PROCEDURE IN AM. REMINDED HE IS NPO AFTER MN. TELE ON. PROVIDED NEW NON SLIP SOCKS. DENIES OTHER NEEDS AT THIS TIME. CL IN REACH, WILL CTM
[2019-12-28 04:00] VITALS: BP 111/52
[2019-12-28 06:36] LABS: APTT 42.7 SECONDS (22.8-39.4); INR 1.99 (0.85-1.17); PROTIME 22.3 SECONDS (11.6-15.0)
--- NOTE | 2019-12-28 09:02 | NUR ---
ASSESSMENT PER FLOW SHEET. MEDS ORDERED.FFP INITIATED. PATIENT WITHOUT REACTIONS. MONITOR FOR NEEDS.NPO EXCEPT SIP OF WATER WITH MEDS.
[2019-12-28 10:09] VITALS: BP 110/57
--- NOTE | 2019-12-28 11:28 | NUR ---
AFTER REVIEW OF PT'S PT/INR AND PTT THE RESULTS WERE DISCUSSED WITH DR. Willi ROSE WHO DECIDED THE PATIENT WAS TO UNSTABLE TO PROCEED WITH THE LIVER BIOPSY PLANNED TODAY. THIS WAS DISCUSSED WITH DR. HERMAN WHO WAS OK WITH NOT PERFORMING THE BIOPSY AND SHE STATED SHE WOULD GIVE VITAMIN K.
[2019-12-28 12:24] LABS: ALBUMIN 2.1 g/dL (3.4-5.0); ALKALINE PHOSPHATASE 116 U/L (30-120); ALT (SGPT) 15 U/L (10-68); BILIRUBIN - TOTAL 1.22 mg/dL (0.2-1.3); CALC OSMOLALITY 278 mosm/kg (275-300); CALCIUM 7.7 mg/dL (8.5-10.1); CARBON DIOXIDE 23.1 mmol/L (21.0-32.0); CHLORIDE - SERUM 112 mmol/L (98-107); CREATININE - SERUM 0.8 mg/dL (0.6-1.3); GLUCOSE 115 mg/dL (74-106); MAGNESIUM - SERUM 1.7 mg/dL (1.8-2.4); POTASSIUM - SERUM 3.7 mmol/L (3.5-5.1); SODIUM 141 mmol/L (136-145); UREA NITROGEN 3 mg/dL (7-18); eGFR NON AFRICAN AMERICAN > 90 mL/min (90-120)
[2019-12-28 12:49] LABS: BASOPHILS 0.6 % (0-2); EOSINOPHILS 6.8 % (0-7); HEMATOCRIT 29.5 % (42.0-54.0); HEMOGLOBIN 8.9 g/dL (13.5-17.5); LYMPHOCYTES 29.9 % (15-50); MCH 27.8 pg (26.0-34.0); MCHC 30.2 g/dL (31.0-37.0); MCV 92.2 fL (80.0-100.0); MEAN PLATELET VOLUME 10.1 fL (7.4-10.4); MONOCYTES 11.3 % (2-11); NEUTROPHILS 51.4 % (40-80); PLATELET COUNT 79 10x3/uL (130-400); RDW 19.1 % (11.5-14.5); WBC 3.6 10x3/uL (4.8-10.8)
[2019-12-28 13:36] VITALS: BP 148/66
--- NOTE | 2019-12-28 14:52 | NUR ---
PATIENT IS WITHOUT DISTRESS.PATIENT MADE NPO FOR POSSIBLE BX THIS AFTERNOON.
[2019-12-28 16:30] LABS: APTT 42.7 SECONDS (22.8-39.4); INR 1.81 (0.85-1.17); PROTIME 20.7 SECONDS (11.6-15.0)
[2019-12-28 18:41] VITALS: BP 104/61
[2019-12-28 20:00] VITALS: BP 115/68
--- NOTE | 2019-12-28 20:00 | NUR ---
PT LYING IN BED SLEEPING WITHOUT DISTRESS, WILL CTM
[2019-12-29 07:04] LABS: HEMOGLOBIN 8.9 g/dL (13.5-17.5); LYMPHOCYTES 28.4 % (15-50); MCH 28.2 pg (26.0-34.0); MCHC 30.7 g/dL (31.0-37.0); MCV 91.8 fL (80.0-100.0); MEAN PLATELET VOLUME 9.6 fL (7.4-10.4); NEUTROPHILS 53.8 % (40-80); PLATELET COUNT 77 10x3/uL (130-400); RBC 3.16 10x6/uL (4.20-6.10); RDW 18.9 % (11.5-14.5); WBC 3.3 10x3/uL (4.8-10.8)
[2019-12-29 07:24] LABS: APTT 46.6 SECONDS (22.8-39.4); INR 1.95 (0.85-1.17)
[2019-12-29 07:30] LABS: ALBUMIN 2.1 g/dL (3.4-5.0); ALKALINE PHOSPHATASE 108 U/L (30-120); ALT (SGPT) 16 U/L (10-68); BILIRUBIN - TOTAL 1.31 mg/dL (0.2-1.3); CALC OSMOLALITY 276 mosm/kg (275-300); CALCIUM 7.7 mg/dL (8.5-10.1); CARBON DIOXIDE 20.7 mmol/L (21.0-32.0); CHLORIDE - SERUM 111 mmol/L (98-107); CREATININE - SERUM 0.8 mg/dL (0.6-1.3); GLUCOSE 108 mg/dL (74-106); MAGNESIUM - SERUM 1.6 mg/dL (1.8-2.4); POTASSIUM - SERUM 3.4 mmol/L (3.5-5.1); SODIUM 140 mmol/L (136-145); eGFR NON AFRICAN AMERICAN > 90 mL/min (90-120)
[2019-12-29 07:32] LABS: UREA NITROGEN 4 mg/dL (7-18)
[2019-12-29 10:13] VITALS: BP 137/67
--- NOTE | 2019-12-29 11:51 | NUR ---
ASSESSMENT PER FLOW SHEET. PATIENT IS WITHOUT DISTRESS.CALL LIGHT IN REACH
[2019-12-29 14:34] VITALS: BP 151/61
--- NOTE | 2019-12-29 16:08 | NUR ---
OT NOTE: ATTEMPTED TO SEE PT IN AM, HOWEVER, HE WAS JUST GETTING HIS BREAKFAST AFTER PREVIOUS NPO..IN PM PT WAS VERY LETHARGIC. WILL ATTEMPT TOMMOROW. GALINDO OCONNOR, OTR/L
[2019-12-29 18:44] VITALS: BP 110/57
[2019-12-29 20:00] VITALS: BP 107/66
--- NOTE | 2019-12-29 20:00 | NUR ---
INTRODUCED SELF TO PT. HE IS SLEEPING. I HAD A HARD TIME WAKING HIM UP FOR MEDS. HE SAYS HE WANTS TO GO HOME. I TOLD HIM HE COULDN'T GO TONIGHT. HIS SKIN IS WARM AND DRY. HE AMBULATES TO THE BR AND STATES HIS WEAKNESS IS BETTER IN THE LOWER EXTREMITIES. HE HAS A IV IN THE LEFT ARM. HE HAS K+ RUNNING NOW. HEART SOUNDS ARE WNL, LUNG SOUNDS HAVE A FEW CRACKLES BUT NOT TOO BAD. NO NEW C/O OR NEEDS.
[2019-12-30 03:00] VITALS: BP 121/41
[2019-12-30 03:15] VITALS: BP 101/45
[2019-12-30 04:00] VITALS: BP 114/66
[2019-12-30 07:19] LABS: ALBUMIN 2.3 g/dL (3.4-5.0); ALKALINE PHOSPHATASE 112 U/L (30-120); ALT (SGPT) 17 U/L (10-68); BILIRUBIN - TOTAL 1.68 mg/dL (0.2-1.3); CALC OSMOLALITY 286 mosm/kg (275-300); CALCIUM 7.6 mg/dL (8.5-10.1); CHLORIDE - SERUM 115 mmol/L (98-107); CREATININE - SERUM 0.8 mg/dL (0.6-1.3); GLUCOSE 87 mg/dL (74-106); MAGNESIUM - SERUM 1.7 mg/dL (1.8-2.4); POTASSIUM - SERUM 3.9 mmol/L (3.5-5.1); PROTEIN - SERUM 6.4 g/dL (6.4-8.2); SODIUM 146 mmol/L (136-145); UREA NITROGEN 3 mg/dL (7-18); eGFR NON AFRICAN AMERICAN > 90 mL/min (90-120)
[2019-12-30 07:22] LABS: INR 1.9 (0.85-1.17); PROTIME 21.5 SECONDS (11.6-15.0)
[2019-12-30 07:47] LABS: BASOPHILS 0.3 % (0-2); EOSINOPHILS 7.1 % (0-7); HEMATOCRIT 29.4 % (42.0-54.0); IMMATURE GRANULOCYTES 0.3 % (0-5); LYMPHOCYTES 28.4 % (15-50); MCH 28.2 pg (26.0-34.0); MCHC 30.6 g/dL (31.0-37.0); MCV 92.2 fL (80.0-100.0); MEAN PLATELET VOLUME 10.3 fL (7.4-10.4); MONOCYTES 11.7 % (2-11); NEUTROPHILS 52.2 % (40-80); PLATELET COUNT 75 10x3/uL (130-400); RBC 3.19 10x6/uL (4.20-6.10); RDW 19.1 % (11.5-14.5); WBC 3.2 10x3/uL (4.8-10.8)
[2019-12-30 08:05] LABS: PLATELET ESTIMATE DECREASED
[2019-12-30 11:02] VITALS: BP 110/74
[2019-12-30] MEDS ORDERED: CHRONULAC30 ML PO (12:22)
[2019-12-30] MEDS ORDERED: MAG-OX 400 MG400 MG PO (12:22)
[2019-12-30] MEDS ORDERED: K-TAB10 MEQ PO (12:23)
[2019-12-30] MEDS ORDERED: K-DUR20 MEQ PO (12:25)
[2019-12-30 13:02] VITALS: BP 113/63
--- NOTE | 2019-12-30 14:01 | NUR ---
REFUSED TO WAIT ON DISCHARGE PAPERS. RIPPED IV OUT CATH INTACT AND LEFT UNIT
--- NOTE | 2019-12-30 14:05 | NUR ---
PATIENT BACK ON UNIT FOR DISCHARGE PAPERS
--- NOTE | 2019-12-30 15:13 | NUR ---
WAITING ON RIDE HOME
--- NOTE | 2019-12-30 15:40 | MORECARE ---
CASE MANAGEMENT DISCHARGE SUMMARY PATIENT: TEENA MAYO UNIT: [id number] ADM DATE: 12/22/19 AGE: 49 : 74 SEX: M ROOM/BED: D.2214 AUTHOR: DOUGLAS DOTSON PHYSICIAN: REFERRING PHYSICIAN: MJ CÁRDENAS MD DATE OF SERVICE: 12/30/19 Discharge Plan Patient Name: TEENA MAYO Facility: [facility]:[place] : 1970 Planned Disposition: Home or Self Care Anticipated Discharge Date: Discharge Date: Expected LOS: Initial Reviewer: [email or web address] Initial Review Date: 12/22/2019 Generated: 12/30/19 4:39 pm Comments DCP- Discharge Planning Updated by [email or web address]: Tamar Yang on 12/30/19 2:[address] PATIENT DISCHARGING HOME TODAY, CM WILL GET A TAXI FOR HIM THE COST IS $8.00 PATIENT STATED THAT HE WILL GET HIS SISTER TO GO SMOKING PIPE REPAIRER HIS MEDICINES AND DENIES ANY OTHER NEEDS DCP- Discharge Planning Updated by [id number]: Tamar Yang on 12/27/19 1:[address] Patient Name: TEENA MAYO Admission Status: ER Accout number: [id number] Admission Date: 12-22-2019 : 1970 Admission Diagnosis: Attending: ERDD Current LOS: 5 Anticipated DC Date: Planned Disposition: Home or Self Care Primary Insurance: [employer] MANAGED MEDICAID Discharge Planning Comments: CM met with patient to complete initial dc planning assessment. CM educated patient on the CM role and verbal consent given by patient to complete assessment. Patient lives at home by himself where he stated he was independent with his care. At discharge patient plans to return home and feels this is a safe discharge. CM discussed availability of home health, rehab services, and medical equipment. He is very slow to respond to my questions. He said he has 2 sisters and one might could pick him up when he is discharged, but he is unsure. He does not have a PCP either. We will see how he progresses, he might need some rehab. Patient denied known discharge needs at this time. CM will continue to follow and will assist as needed with dc plans/needs. Network And Threat Support Specialist: Tamar Yang DCPIA - Discharge Planning Initial Assessment Updated by [email or web address]: Tamar Yang on 12/27/19 2:20 pm * Is the patient Alert and Oriented? Yes * How many steps to enter\exit or inside your home? * PCP none * Pharmacy [facility] [address] * Preadmission Environment Home Alone * ADLs Independent * Equipment None * List name and contact numbers for known caregivers / representatives who currently or will assist patient after discharge: RADHA (SISTER) [phone] ELHAM (SISTER) [phone] * Verbal permission to speak to the caregivers and representatives has been obtained from the patient. N/A * Community resources currently utilized None * Additional services required to return to the preadmission environment? Yes * Can the patient safely return to the preadmission environment? Yes * Has this patient been hospitalized within the prior 30 days at any hospital? No Last DP export: 12/27/19 1:31 p Patient Name: TEENA MAYO Page 43348 at 1540 All edits/amendments must be made on the electronic document DICTATION DATE: 12/30/19 153 ORDER PROCESSOR: AMIE 12/30/19 153 RPT#: [id number] [place] DATE: STATUS: ADM IN [facility] [address] [place] [address] END OF REPORT
--- NOTE | 2019-12-30 16:03 | NUR ---
LEFT UNIT VIA WHEELCHAIR FOR TAXI RIDE HOME
--- NOTE | 2020-01-02 14:29 | MORECARE ---
CASE MANAGEMENT DISCHARGE SUMMARY PATIENT: TEENA MAYO UNIT: [id number] ADM DATE: 12/22/19 AGE: 49 : 74 SEX: M ROOM/BED: D.2214 AUTHOR: MAURIDOC PHYSICIAN: REFERRING PHYSICIAN: MJ CÁRDENAS MD DATE OF SERVICE: 01/02/20 Discharge Plan Patient Name: TEENA MAYO Facility: [facility]:[place] : 1970 Planned Disposition: Home or Self Care Anticipated Discharge Date: Discharge Date: 12/30/2019 Expected LOS: Initial Reviewer: [email or web address] Initial Review Date: 12/22/2019 Generated: 01/02/20 3:28 pm Comments DCP- Discharge Planning Updated by [email or web address]: Tamar Yang on 12/30/19 2:[address] PATIENT DISCHARGING HOME TODAY, CM WILL GET A TAXI FOR HIM THE COST IS $8.00 PATIENT STATED THAT HE WILL GET HIS SISTER TO GO SENIOR ANALYST PROGRAMMER HIS MEDICINES AND DENIES ANY OTHER NEEDS DCP- Discharge Planning Updated by [email or web address]: Tamar Yang on 12/27/19 1:[address] Patient Name: TEENA MAYO Admission Status: ER Accout number: [id number] Admission Date: 12-22-2019 : 1970 Admission Diagnosis: Attending: REDD Current LOS: 5 Anticipated DC Date: Planned Disposition: Home or Self Care Primary Insurance: [facility] Discharge Planning Comments: CM met with patient to complete initial dc planning assessment. CM educated patient on the CM role and verbal consent given by patient to complete assessment. Patient lives at home by himself where he stated he was independent with his care. At discharge patient plans to return home and feels this is a safe discharge. CM discussed availability of home health, rehab services, and medical equipment. He is very slow to respond to my questions. He said he has 2 sisters and one might could pick him up when he is discharged, but he is unsure. He does not have a PCP either. We will see how he progresses, he might need some rehab. Patient denied known discharge needs at this time. CM will continue to follow and will assist as needed with dc plans/needs. Automobile And Property Underwriter: Tamar Yang DCPIA - Discharge Planning Initial Assessment Updated by [email or web address]: Tamar Yang on 12/27/19 2:20 pm * Is the patient Alert and Oriented? Yes * How many steps to enter\exit or inside your home? * PCP none * Pharmacy [facility] [address] * Preadmission Environment Home Alone * ADLs Independent * Equipment None * List name and contact numbers for known caregivers / representatives who currently or will assist patient after discharge: RADHA (SISTER) [phone] ELHAM (SISTER) [phone] * Verbal permission to speak to the caregivers and representatives has been obtained from the patient. N/A * Community resources currently utilized None * Additional services required to return to the preadmission environment? Yes * Can the patient safely return to the preadmission environment? Yes * Has this patient been hospitalized within the prior 30 days at any hospital? No Last DP export: 12/30/19 2:40 p Patient Name: TEENA MAYO Page 42197 at 1429 All edits/amendments must be made on the electronic document DICTATION DATE: 01/02/201428 EMPLOYEE RELATIONS CONSULTANT: AMIE 01/02/20 142 RPT#: [id number] DC DATE:12/30/19 STATUS: DIS IN [facility] [address] [place] [address] END OF REPORT
== END 2019-12-30 16:04 | disposition home or self-care (01) | DRG 551 ==
LOC: D.ER 23:24 → D.MS 12-22 03:09 → OBSVTIME 12-22 03:09 → D.MS 12-22 03:09 → D.ICU 12-22 14:24 → D.MS 12-23 17:36
PROVIDERS: Family Medicine; Internal Medicine Hematology & Oncology; Radiology Vascular & Interventional Radiology; Specialist; ADMIT Family Medicine; ATTEND Family Medicine
DX: M47.816 Spondylosis without myelopathy or radiculopathy, lumbar region (principal); G93.41 Metabolic encephalopathy; K76.6 Portal hypertension; D61.818 Other pancytopenia; F17.203 Nicotine dependence unspecified, with withdrawal; F10.231 Alcohol dependence with withdrawal delirium; W19.XXXA Unspecified fall, initial encounter; E87.6 Hypokalemia; D64.9 Anemia, unspecified; F12.90 Cannabis use, unspecified, uncomplicated; K74.60 Unspecified cirrhosis of liver

== ENCOUNTER 2019-12-30 19:19 | Inpatient (IN) | payer OTHER ==
[~2019-12-30] VITALS: Ht 167.6 cm; Wt 81.6 kg
[~2019-12-30 19:19] MED LIST changes: +CHRONULAC30 ML PO; +K-TAB10 MEQ PO; +MAG-OX 400 MG400 MG PO
[2019-12-30 20:10] LABS: BASOPHILS 0.6 % (0-2); EOSINOPHILS 5.2 % (0-7); HEMATOCRIT 28.8 % (42.0-54.0); HEMOGLOBIN 8.7 g/dL (13.5-17.5); LYMPHOCYTES 24.9 % (15-50); MCH 27.7 pg (26.0-34.0); MCHC 30.2 g/dL (31.0-37.0); MCV 91.7 fL (80.0-100.0); MEAN PLATELET VOLUME 10.3 fL (7.4-10.4); MONOCYTES 16.4 % (2-11); NEUTROPHILS 52.9 % (40-80); PLATELET COUNT 68 10x3/uL (130-400); RBC 3.14 10x6/uL (4.20-6.10); RDW 18.6 % (11.5-14.5); WBC 3.3 10x3/uL (4.8-10.8)
[2019-12-30 20:35] LABS: CALC OSMOLALITY 283 mosm/kg (275-300); CALCIUM 7.8 mg/dL (8.5-10.1); CARBON DIOXIDE 22.5 mmol/L (21.0-32.0); CHLORIDE - SERUM 112 mmol/L (98-107); CREATININE - SERUM 0.9 mg/dL (0.6-1.3); GLUCOSE 105 mg/dL (74-106); POTASSIUM - SERUM 3.8 mmol/L (3.5-5.1); SODIUM 144 mmol/L (136-145); UREA NITROGEN 3 mg/dL (7-18); eGFR NON AFRICAN AMERICAN > 90 mL/min (90-120)
[2019-12-30 20:39] LABS: ALBUMIN 2.3 g/dL (3.4-5.0); ALKALINE PHOSPHATASE 120 U/L (30-120); ALT (SGPT) 18 U/L (10-68); BILIRUBIN - TOTAL 1.52 mg/dL (0.2-1.3); MAGNESIUM - SERUM 1.8 mg/dL (1.8-2.4); PROTEIN - SERUM 6.4 g/dL (6.4-8.2)
[2019-12-30 21:09] LABS: BILIRUBIN NEGATIVE (NEGATIVE); GLUCOSE NEGATIVE (NEGATIVE); KETONE NEGATIVE (NEGATIVE); NITRITE NEGATIVE (NEGATIVE); UROBILINOGEN NORMAL (NORMAL)
[2019-12-30 21:25] LABS: UDS - AMPHET NEGATIVE QUAL (NEGATIVE); UDS - BARB NEGATIVE QUAL (NEGATIVE); UDS - BENZO POSITIVE QUAL (NEGATIVE); UDS - COCAINE NEGATIVE QUAL (NEGATIVE); UDS - OPIATE NEGATIVE QUAL (NEGATIVE); UDS - PCP NEGATIVE QUAL (NEGATIVE); UDS - THC NEGATIVE QUAL (NEGATIVE)
--- NOTE | 2019-12-30 22:11 | NUR ---
PER EDP VERBAL ORDER, CHANGE MVI TO 500ML/HR FROM 125ML/HR
--- NOTE | 2019-12-30 22:13 | NUR ---
PER EDP VERBAL ORDER, CHANGE MVI FROM 125ML/HR TO 500ML/HR
[2019-12-30 23:43] VITALS: BP 123/60
[2019-12-31 05:39] LABS: BASOPHILS 0.3 % (0-2); HEMATOCRIT 28.3 % (42.0-54.0); HEMOGLOBIN 8.6 g/dL (13.5-17.5); LYMPHOCYTES 30.9 % (15-50); MCH 27.6 pg (26.0-34.0); MCHC 30.4 g/dL (31.0-37.0); MCV 90.7 fL (80.0-100.0); MEAN PLATELET VOLUME 9.5 fL (7.4-10.4); MONOCYTES 13.3 % (2-11); NEUTROPHILS 48.5 % (40-80); PLATELET COUNT 69 10x3/uL (130-400); RBC 3.12 10x6/uL (4.20-6.10); RDW 18.6 % (11.5-14.5); WBC 3.3 10x3/uL (4.8-10.8)
[2019-12-31 05:57] LABS: INR 1.9 (0.85-1.17); PROTIME 21.5 SECONDS (11.6-15.0)
[2019-12-31 06:07] LABS: PLATELET ESTIMATE DECREASED
[2019-12-31 06:15] LABS: % SATURATION 10 % (15-55); IRON 30 ug/dl (35-150); TOTAL IRON BIND CAPACITY 293 ug/dl (260-445); UNSAT IRON BIND CAPACITY 263 ug/dl (150-375)
[2019-12-31 06:39] LABS: ALBUMIN 2.1 g/dL (3.4-5.0); ALKALINE PHOSPHATASE 116 U/L (30-120); ALT (SGPT) 16 U/L (10-68); BILIRUBIN - TOTAL 1.37 mg/dL (0.2-1.3); CALC OSMOLALITY 284 mosm/kg (275-300); CALCIUM 7.6 mg/dL (8.5-10.1); CARBON DIOXIDE 25.3 mmol/L (21.0-32.0); CHLORIDE - SERUM 113 mmol/L (98-107); CHOL - HDL RATIO 1.9 ratio (2.3-4.9); CHOLESTEROL, TOTAL 82 mg/dL (0-200); CREATININE - SERUM 0.7 mg/dL (0.6-1.3); FERRITIN 16 ng/mL (3-244); GLUCOSE 85 mg/dL (74-106); HDL CHOLESTEROL 43 mg/dL (32-96); LDH 181 U/L (85-227); LDL CHOLESTEROL 30 mg/dL (0-100); LDL-HDL RATIO 0.7 ratio (1.5-3.5); MAGNESIUM - SERUM 1.8 mg/dL (1.8-2.4); PHOSPHOROUS 3.4 mg/dL (2.5-4.9); POTASSIUM - SERUM 3.6 mmol/L (3.5-5.1); PRO BNP 103 pg/mL (0-125); PROTEIN - SERUM 6.1 g/dL (6.4-8.2); SODIUM 145 mmol/L (136-145); TRIGLYCERIDE 45 mg/dL (30-200); UREA NITROGEN 3 mg/dL (7-18); eGFR NON AFRICAN AMERICAN > 90 mL/min (90-120)
[2019-12-31 10:10] VITALS: BP 120/71
[2019-12-31 11:53] VITALS: BMI 29.0
[2019-12-31 13:25] VITALS: BP 107/58
[2019-12-31 17:02] VITALS: BP 98/56
[2019-12-31 21:00] VITALS: BP 114/57
[2020-01-01 06:57] LABS: BASOPHILS 0.6 % (0-2); EOSINOPHILS 7.1 % (0-7); HEMATOCRIT 27.2 % (42.0-54.0); HEMOGLOBIN 8.3 g/dL (13.5-17.5); IMMATURE GRANULOCYTES 0.3 % (0-5); LYMPHOCYTES 32.6 % (15-50); MCH 27.4 pg (26.0-34.0); MCHC 30.5 g/dL (31.0-37.0); MCV 89.8 fL (80.0-100.0); MEAN PLATELET VOLUME 9.8 fL (7.4-10.4); MONOCYTES 12.9 % (2-11); NEUTROPHILS 46.5 % (40-80); PLATELET COUNT 70 10x3/uL (130-400); RBC 3.03 10x6/uL (4.20-6.10); RDW 18.6 % (11.5-14.5); WBC 3.1 10x3/uL (4.8-10.8)
[2020-01-01 07:09] LABS: CALCIUM 7.8 mg/dL (8.5-10.1); CARBON DIOXIDE 24.2 mmol/L (21.0-32.0); CHLORIDE - SERUM 110 mmol/L (98-107); GLUCOSE 86 mg/dL (74-106); MAGNESIUM - SERUM 1.6 mg/dL (1.8-2.4); POTASSIUM - SERUM 3.1 mmol/L (3.5-5.1); SODIUM 141 mmol/L (136-145)
[2020-01-01 07:15] VITALS: BP 105/55
[2020-01-01 07:15] LABS: CALC OSMOLALITY 276 mosm/kg (275-300); UREA NITROGEN 4 mg/dL (7-18)
[2020-01-01 07:18] LABS: CREATININE - SERUM 0.9 mg/dL (0.6-1.3); eGFR NON AFRICAN AMERICAN > 90 mL/min (90-120)
[2020-01-01 07:37] LABS: PLATELET ESTIMATE DECREASED
[2020-01-01 12:04] VITALS: BP 103/55
[2020-01-01 13:49] LABS: INR 1.84 (0.85-1.17)
[2020-01-01 15:48] VITALS: BP 116/53
[2020-01-01 20:00] VITALS: BP 108/56
[2020-01-02] VITALS: BP 120/61
[2020-01-02 04:00] VITALS: BP 110/52
[2020-01-02 06:20] LABS: BASOPHILS 0.3 % (0-2); EOSINOPHILS 6.6 % (0-7); HEMATOCRIT 28.5 % (42.0-54.0); HEMOGLOBIN 8.9 g/dL (13.5-17.5); MCHC 31.2 g/dL (31.0-37.0); MCV 89.6 fL (80.0-100.0); MEAN PLATELET VOLUME 9.8 fL (7.4-10.4); MONOCYTES 12.2 % (2-11); NEUTROPHILS 46.9 % (40-80); PLATELET COUNT 73 10x3/uL (130-400); RBC 3.18 10x6/uL (4.20-6.10); RDW 18.5 % (11.5-14.5)
[2020-01-02 06:56] LABS: CALC OSMOLALITY 286 mosm/kg (275-300); CALCIUM 7.8 mg/dL (8.5-10.1); CARBON DIOXIDE 24.2 mmol/L (21.0-32.0); CHLORIDE - SERUM 112 mmol/L (98-107); CREATININE - SERUM 0.8 mg/dL (0.6-1.3); GLUCOSE 87 mg/dL (74-106); MAGNESIUM - SERUM 1.6 mg/dL (1.8-2.4); PHOSPHOROUS 3.7 mg/dL (2.5-4.9); POTASSIUM - SERUM 3.1 mmol/L (3.5-5.1); SODIUM 146 mmol/L (136-145); UREA NITROGEN 4 mg/dL (7-18); eGFR NON AFRICAN AMERICAN > 90 mL/min (90-120)
[2020-01-02 07:32] LABS: INR 1.86 (0.85-1.17); PROTIME 21.2 SECONDS (11.6-15.0)
[2020-01-02 08:37] VITALS: BP 117/63
[2020-01-02 09:09] LABS: ERYTHROPOIETIN 233.5 mIU/mL (2.6-18.5)
[2020-01-02 12:00] VITALS: BP 100/51
[2020-01-02 16:00] VITALS: BP 122/35
[2020-01-03 03:07] LABS: HEPATITIS C ANTIBODY 0.3 S/CO RAT (0.0-0.9)
[2020-01-03 04:30] VITALS: BP 101/57
[2020-01-03 06:17] LABS: BASOPHILS 0.7 % (0-2); EOSINOPHILS 6.9 % (0-7); HEMATOCRIT 27.8 % (42.0-54.0); HEMOGLOBIN 8.4 g/dL (13.5-17.5); LYMPHOCYTES 30.7 % (15-50); MCH 27.2 pg (26.0-34.0); MCHC 30.2 g/dL (31.0-37.0); MEAN PLATELET VOLUME 10.5 fL (7.4-10.4); MONOCYTES 12.2 % (2-11); NEUTROPHILS 49.5 % (40-80); PLATELET COUNT 76 10x3/uL (130-400); RBC 3.09 10x6/uL (4.20-6.10); RDW 18.9 % (11.5-14.5)
[2020-01-03 06:30] LABS: CALC OSMOLALITY 284 mosm/kg (275-300); CALCIUM 7.9 mg/dL (8.5-10.1); CHLORIDE - SERUM 113 mmol/L (98-107); GLUCOSE 88 mg/dL (74-106); MAGNESIUM - SERUM 2.2 mg/dL (1.8-2.4); PHOSPHOROUS 3.9 mg/dL (2.5-4.9); POTASSIUM - SERUM 3.2 mmol/L (3.5-5.1); SODIUM 145 mmol/L (136-145); UREA NITROGEN 4 mg/dL (7-18); eGFR NON AFRICAN AMERICAN 85 mL/min (90-120)
[2020-01-03 06:38] LABS: INR 1.92 (0.85-1.17); PROTIME 21.7 SECONDS (11.6-15.0)
[2020-01-03 07:58] LABS: PLATELET ESTIMATE DECREASED
[2020-01-03 08:09] VITALS: BP 122/69
[2020-01-03 12:54] VITALS: BP 102/58
[2020-01-03 17:24] VITALS: BP 109/60
[2020-01-03 18:09] VITALS: Ht 167.6 cm; Wt 81.6 kg
[2020-01-03 20:00] VITALS: BP 101/53
[2020-01-04] VITALS: BP 106/60
[2020-01-04 04:00] VITALS: BP 113/65
--- NOTE | 2020-01-04 05:43 | NUR ---
I have reviewed this patient and I concur with the Shift Assessment completed by the Licensed Practical Nurse today this shift.
[2020-01-04 07:11] LABS: BASOPHILS 0.6 % (0-2); EOSINOPHILS 7.2 % (0-7); HEMATOCRIT 26.8 % (42.0-54.0); HEMOGLOBIN 8.3 g/dL (13.5-17.5); MCH 27.6 pg (26.0-34.0); MONOCYTES 12.7 % (2-11); NEUTROPHILS 49.5 % (40-80); PLATELET COUNT 71 10x3/uL (130-400); RBC 3.01 10x6/uL (4.20-6.10); RDW 18.5 % (11.5-14.5); WBC 3.5 10x3/uL (4.8-10.8)
[2020-01-04 07:32] LABS: CALC OSMOLALITY 274 mosm/kg (275-300); CARBON DIOXIDE 21.7 mmol/L (21.0-32.0); CHLORIDE - SERUM 110 mmol/L (98-107); GLUCOSE 86 mg/dL (74-106); MAGNESIUM - SERUM 1.8 mg/dL (1.8-2.4); PHOSPHOROUS 3.4 mg/dL (2.5-4.9); SODIUM 140 mmol/L (136-145); UREA NITROGEN 5 mg/dL (7-18); eGFR NON AFRICAN AMERICAN 85 mL/min (90-120)
[2020-01-04 08:02] LABS: INR 1.88 (0.85-1.17); PROTIME 21.4 SECONDS (11.6-15.0)
[2020-01-04 08:50] VITALS: BP 116/50
[2020-01-04] MEDS ORDERED: NICODERM CQ1 EAC3 TRANSDERM (12:26)
[2020-01-04] MEDS ORDERED: PROTONIX40 MG PO (12:27)
[2020-01-04] MEDS ORDERED: VITAMIN B-1100 M1 PO (12:27)
[2020-01-04] MEDS ORDERED: CHRONULAC30 ML PO (12:27)
[2020-01-04] MEDS ORDERED: MULTI-DAY VITAM1 TAB PO (12:28)
[2020-01-04] MEDS ORDERED: FOLIC ACID1 MG PO (12:29)
[2020-01-04 13:31] VITALS: BP 131/67
--- NOTE | 2020-01-04 15:52 | MORECARE ---
CASE MANAGEMENT DISCHARGE SUMMARY PATIENT: TEENA MAYO UNIT: [id number] ADM DATE: 12/31/19 AGE: 49 : 74 SEX: M ROOM/BED: D.2231 AUTHOR: DOUGLAS DOTSON PHYSICIAN: REFERRING PHYSICIAN: ALYCIA NORTON DO DATE OF SERVICE: 01/04/20 Discharge Plan Patient Name: TEENA MAYO Facility: [facility]:[place] : 1970 Planned Disposition: Anticipated Discharge Date: Discharge Date: Expected LOS: Initial Reviewer: [email or web address] Initial Review Date: 01/04/2020 Generated: 01/04/20 4:52 pm Comments DCP- Discharge Planning Updated by [email or web address]: Marilee Lemus on 01/04/20 2:[address] Patient Name: TEENA MAYO Admission Status: ER Accout number: [id number] Admission Date: 12-31-2019 : 1970 Admission Diagnosis:ALCOHOL ABUSE WITH INTOXICATION, UNSPECIFIED Attending: ALYCIA NORTON Current LOS: 4 Anticipated DC Date: Planned Disposition: Primary Insurance: [facility]ICA[facility] Discharge Planning Comments: CM met with patient at bedside after explaining CM role and obtaining verbal consent. CM discussed availability / needs of home health, REHAB and medical equipment. PATIENT DENIES ANY DISCHARGE NEEDS. Clock Smith: Marilee Lemus DCPIA - Discharge Planning Initial Assessment Updated by [email or web address]: Marilee Lemus on 01/04/20 3:52 pm * Is the patient Alert and Oriented? Yes * PCP NONE * Pharmacy [facility] * Preadmission Environment Home Alone * ADLs Independent * Equipment None * Community resources currently utilized None * Additional services required to return to the preadmission environment? No * Can the patient safely return to the preadmission environment? Yes * Has this patient been hospitalized within the prior 30 days at any hospital? No Patient Name: TEENA MAYO Page [id number] at 1552 All edits/amendments must be made on the electronic document DICTATION DATE: 01/04/20 1552 MARKETING COMMUNICATIONS SPECIALIST: AMIE 01/04/20 1552 RPT#: [id number] DC DATE: STATUS: ADM IN [facility] [address] [place] [address] END OF REPORT
--- NOTE | 2020-01-04 18:07 | MORECARE ---
CASE MANAGEMENT DISCHARGE SUMMARY PATIENT: TEENA MAYO UNIT: [id number] ADM DATE: 12/31/19 AGE: 49 : 74 SEX: M ROOM/BED: D.2231 AUTHOR: DOUGLAS DOTSON PHYSICIAN: REFERRING PHYSICIAN: ALYCIA NORTON DO DATE OF SERVICE: 01/04/20 Discharge Plan Patient Name: TEENA MAYO Facility: [facility]:[place] : 1970 Planned Disposition: Anticipated Discharge Date: Discharge Date: Expected LOS: Initial Reviewer: [email or web address] Initial Review Date: 01/04/2020 Generated: 01/04/20 7:07 pm Comments DCP- Discharge Planning Updated by [email or web address]: Marilee Lemus on 01/04/20 5:[address] Patient Name: TEENA MAYO Admission Status: ER Accout number: [id number] Admission Date: 12-31-2019 : 1970 Admission Diagnosis:ALCOHOL ABUSE WITH INTOXICATION, UNSPECIFIED Attending: ALYCIA NORTON Current LOS: 4 Anticipated DC Date: Planned Disposition: Primary Insurance: [facility] Discharge Planning Comments: CM met with patient at bedside after explaining CM role and obtaining verbal consent. CM discussed availability / needs of home health, REHAB and medical equipment. PATIENT DENIES ANY DISCHARGE NEEDS. Photographs Curator: Marilee Lemus Appended by Marilee Lemus on 01/04/2020 18:02 CDT: TAXI APPROVED FOR PATIENT TRANSPORT TO HOME BY [place]. DCPIA - Discharge Planning Initial Assessment Updated by [email or web address]: Marilee Lemus on 01/04/20 3:52 pm * Is the patient Alert and Oriented? Yes * PCP NONE * Pharmacy [facility] * Preadmission Environment Home Alone * ADLs Independent * Equipment None * Community resources currently utilized None * Additional services required to return to the preadmission environment? No * Can the patient safely return to the preadmission environment? Yes * Has this patient been hospitalized within the prior 30 days at any hospital? No Last DP export: 01/04/20 2:52 p Patient Name: TEENA MAYO Page 52277 at 1807 All edits/amendments must be made on the electronic document DICTATION DATE: 01/04/201806 HOME OFFICE CLAIM SPECIALIST: AMIE 01/04/201806 RPT#: [id number] DC DATE: STATUS: ADM IN [facility] [address] [place] [address] END OF REPORT
--- NOTE | 2020-01-04 18:09 | NUR ---
Gave discharge instructions and education. received well. No acute distress noted. PIV removed and fully intact. CM arranged for a taxi to transport pt to his home. Pt walked to walked himself to the exit and did not want to be taken via WC.
--- NOTE | 2020-01-04 22:09 | NUR ---
OT NOTE: PT COMPLETED SUPINE TO SIT WIHT MOD I. PT COMPLETED IN ROOM MOBILITY WITH MOD I. PT COMPLETED HYGIENE TASKS AT SINK LEVEL WITH MOD I. [id number] THANK YOU,SEBAS FANG
--- NOTE | 2020-01-05 09:03 | MORECARE ---
CASE MANAGEMENT DISCHARGE SUMMARY PATIENT: TEENA MAYO UNIT: [id number] ADM DATE: 12/31/19 AGE: 49 : 74 SEX: M ROOM/BED: D.2231 AUTHOR: DOUGLAS DOTSON PHYSICIAN: REFERRING PHYSICIAN: ALYCIA NORTON DO DATE OF SERVICE: 01/05/20 Discharge Plan Patient Name: TEENA MAYO Facility: [facility]:[place] : 1970 Planned Disposition: Anticipated Discharge Date: Discharge Date: 01/04/2020 Expected LOS: Initial Reviewer: [email or web address] Initial Review Date: 01/04/2020 Generated: 01/05/20 10:03 am Comments DCP- Discharge Planning Updated by [email or web address]: Marilee Lemus on 01/04/20 5:[address] Patient Name: TEENA MAYO Admission Status: ER Accout number: [id number] Admission Date: 12-31-2019 : 1970 Admission Diagnosis:ALCOHOL ABUSE WITH INTOXICATION, UNSPECIFIED Attending: ALYCIA NORTON Current LOS: 4 Anticipated DC Date: Planned Disposition: Primary Insurance: [facility] MANAGED MEDICAID Discharge Planning Comments: CM met with patient at bedside after explaining CM role and obtaining verbal consent. CM discussed availability / needs of home health, REHAB and medical equipment. PATIENT DENIES ANY DISCHARGE NEEDS. Drum Sander Offbearer: Marilee Lmeus Appended by Marilee Lemus on 01/04/2020 18:02 CDT: [facility] APPROVED FOR PATIENT TRANSPORT TO HOME BY [place]. DCPIA - Discharge Planning Initial Assessment Updated by [email or web address]: Marilee Lemus on 01/04/20 3:52 pm * Is the patient Alert and Oriented? Yes * PCP NONE * Pharmacy [facility] * Preadmission Environment Home Alone * ADLs Independent * Equipment None * Community resources currently utilized None * Additional services required to return to the preadmission environment? No * Can the patient safely return to the preadmission environment? Yes * Has this patient been hospitalized within the prior 30 days at any hospital? No Last DP export: 01/04/20 5:08 p Patient Name: TEENA MAYO Page [phone] at 0903 All edits/amendments must be made on the electronic document DICTATION DATE: 01/05/20902 HOME HEALTH OCCUPATIONAL THERAPIST: AMIE 01/05/20902 RPT#: [id number] DC DATE:01/04/20 STATUS: [facility] [address] [place] [address] END OF REPORT
== END 2020-01-04 19:37 | disposition home or self-care (01) | DRG 896 ==
LOC: D.ER 19:19 → D.MS 22:47 → OBSVTIME 22:47 → D.MS 12-31 23:15
PROVIDERS: Family Medicine; ADMIT Family Medicine; ATTEND Family Medicine
DX: F10.231 Alcohol dependence with withdrawal delirium (principal); G93.41 Metabolic encephalopathy; E72.20 Disorder of urea cycle metabolism, unspecified; K74.60 Unspecified cirrhosis of liver; D64.9 Anemia, unspecified; R16.0 Hepatomegaly, not elsewhere classified; Z72.0 Tobacco use; F19.10 Other psychoactive substance abuse, uncomplicated; D69.6 Thrombocytopenia, unspecified

== ENCOUNTER 2020-01-07 00:13 | Emergency (ER) | payer OTHER ==
[~2020-01-07] VITALS: Ht 167.6 cm; Wt 68.2 kg
[~2020-01-07 00:13] MED LIST changes: +FOLIC ACID1 MG PO; +MULTI-DAY VITAM1 TAB PO; +NICODERM CQ1 EAC3 TRANSDERM; +VITAMIN B-1100 M1 PO
[2020-01-07 00:14] VITALS: Ht 167.6 cm; Wt 68.2 kg
[2020-01-07 00:55] LABS: BILIRUBIN NEGATIVE (NEGATIVE); GLUCOSE NEGATIVE (NEGATIVE); KETONE NEGATIVE (NEGATIVE); NITRITE NEGATIVE (NEGATIVE); UROBILINOGEN NORMAL (NORMAL)
[2020-01-07 00:56] LABS: BACTERIA FEW /hpf (NEGATIVE); RED CELLS - URINE RARE /hpf (0-5); WHITE CELLS - URINE 0-5 /hpf (NEGATIVE)
[2020-01-07 00:57] LABS: BASOPHILS 0.9 % (0-2); EOSINOPHILS 8.3 % (0-7); HEMATOCRIT 31.1 % (42.0-54.0); HEMOGLOBIN 9.6 g/dL (13.5-17.5); IMMATURE GRANULOCYTES 0.2 % (0-5); LYMPHOCYTES 33.8 % (15-50); MCH 27.7 pg (26.0-34.0); MCHC 30.9 g/dL (31.0-37.0); MCV 89.6 fL (80.0-100.0); MEAN PLATELET VOLUME 9.7 fL (7.4-10.4); MONOCYTES 11.8 % (2-11); PLATELET COUNT 97 10x3/uL (130-400); RBC 3.47 10x6/uL (4.20-6.10); RDW 18.2 % (11.5-14.5); WBC 4.6 10x3/uL (4.8-10.8)
[2020-01-07 01:13] LABS: UDS - AMPHET NEGATIVE QUAL (NEGATIVE); UDS - BARB NEGATIVE QUAL (NEGATIVE); UDS - BENZO POSITIVE QUAL (NEGATIVE); UDS - COCAINE NEGATIVE QUAL (NEGATIVE); UDS - OPIATE NEGATIVE QUAL (NEGATIVE); UDS - PCP NEGATIVE QUAL (NEGATIVE); UDS - THC NEGATIVE QUAL (NEGATIVE)
[2020-01-07 01:14] LABS: INR 1.68 (0.85-1.17); PROTIME 19.6 SECONDS (11.6-15.0)
[2020-01-07 01:15] LABS: APTT 43.6 SECONDS (22.8-39.4)
[2020-01-07 01:25] LABS: PLATELET ESTIMATE NORMAL
[2020-01-07 01:50] LABS: ALBUMIN 2.9 g/dL (3.4-5.0); ALKALINE PHOSPHATASE 110 U/L (30-120); ALT (SGPT) 20 U/L (10-68); AMYLASE - SERUM 67 U/L (25-115); CALC OSMOLALITY 270 mosm/kg (275-300); CALCIUM 8.6 mg/dL (8.5-10.1); CARBON DIOXIDE 24.6 mmol/L (21.0-32.0); CHLORIDE - SERUM 103 mmol/L (98-107); CREATINE KINASE 391 UL (21-232); GLUCOSE 102 mg/dL (74-106); LIPASE 161 U/L (73-393); MAGNESIUM - SERUM 1.6 mg/dL (1.8-2.4); POTASSIUM - SERUM 2.7 mmol/L (3.5-5.1); PROTEIN - SERUM 7.9 g/dL (6.4-8.2); SODIUM 137 mmol/L (136-145); UREA NITROGEN 4 mg/dL (7-18); eGFR NON AFRICAN AMERICAN 85 mL/min (90-120)
[2020-01-07 01:51] LABS: CKMB 0.3 U/L (0.0-3.6)
[2020-01-07 07:36] VITALS: BP 110/73
== END 2020-01-07 07:37 | disposition home or self-care (01) ==
LOC: D.ER 00:13
PROVIDERS: Family Medicine
DX: E87.6 Hypokalemia (principal); F10.229 Alcohol dependence with intoxication, unspecified; Y90.5 Blood alcohol level of 100-119 mg/100 ml; K74.60 Unspecified cirrhosis of liver; E83.42 Hypomagnesemia; M54.5 Low back pain

== ENCOUNTER 2020-07-10 23:18 | Inpatient (IN) | payer OTHER ==
[~2020-07-10] VITALS: Ht 167.6 cm; Wt 77.1 kg
[~2020-07-10 23:18] MED LIST changes: +XIFAXAN550 MG PO
[2020-07-11] VITALS (7 sets, daily range): BP systolic 105–160; BP diastolic 37–86
[2020-07-11 00:15] LABS: BASOPHILS 0.5 % (0-2); EOSINOPHILS 0.5 % (0-7); HEMATOCRIT 37.6 % (42.0-54.0); HEMOGLOBIN 13.6 g/dL (13.5-17.5); IMMATURE GRANULOCYTES 0.3 % (0-5); LYMPHOCYTE ABS# 1.06 10x3/uL (1.32-3.57); LYMPHOCYTES 17.8 % (15-50); MCH 34.7 pg (26.0-34.0); MCHC 36.2 g/dL (31.0-37.0); MCV 95.9 fL (80.0-100.0); MEAN PLATELET VOLUME 9.9 fL (7.4-10.4); MONOCYTES 12.4 % (2-11); NEUTROPHIL ABS# 4.07 10x3/uL (1.78-5.38); NEUTROPHILS 68.5 % (40-80); RBC 3.92 10x6/uL (4.20-6.10); RDW 16.1 % (11.5-14.5)
[2020-07-11 00:18] LABS: PLATELET COUNT 106 10x3/uL (130-400)
--- NOTE | 2020-07-11 00:34 | NUR ---
UPON ROUNDING ON PATIENT FOUND PATIENT TO HAVE PULSE OX CORD IN HIS MOUTH CHEWING ON IT. A PORTION OF THE COVERING HAD BEEN TAKEN OFF ALONG WITH SOME WIRES. PATIENT STATED HE WAS NOT CHEWING ON CORD AND THAT HE DID NOT DO THAT. WHEN I TURNED AROUND TO UNPLUG CORD FROM MONITOR PATIENT TOOK OUT IV AND BEGAN CHEWING ON TEGADERM. STATED HE DID NOT DO THAT AND WAS DOING NOTHING WRONG. PATIENT PLACED IN 2 POINT RESTRAINTS FOR PATIENT'S SAFETY.
[2020-07-11 00:35] LABS: APTT 39.4 SECONDS (22.8-39.4); INR 1.76 (0.85-1.17); PROTIME 19.1 SECONDS (11.6-15.0)
[2020-07-11 00:57] LABS: ALBUMIN 2.6 g/dL (3.4-5.0); ALKALINE PHOSPHATASE 182 U/L (30-120); ALT (SGPT) 30 U/L (10-68); BILIRUBIN - TOTAL 6.03 mg/dL (0.2-1.3); CALCIUM 9.4 mg/dL (8.5-10.1); CARBON DIOXIDE 25.7 mmol/L (21.0-32.0); CHLORIDE - SERUM 100 mmol/L (98-107); CREATININE - SERUM 1.2 mg/dL (0.6-1.3); LIPASE 976 U/L (73-393); MAGNESIUM - SERUM 1.6 mg/dL (1.8-2.4); PRO BNP 46 pg/mL (0-125); SODIUM 135 mmol/L (136-145); THYROID STIMULATING HORMONE 0.97 uIU/mL (0.36-3.74); TROPONIN-I 0.041 ng/mL (0.000-0.060); UREA NITROGEN 11 mg/dL (7-18); eGFR NON AFRICAN AMERICAN 69 mL/min (90-120)
[2020-07-11 00:58] LABS: CALC OSMOLALITY 276 mosm/kg (275-300); CREATINE KINASE 994 UL (21-232); GLUCOSE 234 mg/dL (74-106)
[2020-07-11 01:06] LABS: UDS - AMPHET NEGATIVE QUAL (NEGATIVE); UDS - BARB NEGATIVE QUAL (NEGATIVE); UDS - BENZO NEGATIVE QUAL (NEGATIVE); UDS - COCAINE NEGATIVE QUAL (NEGATIVE); UDS - OPIATE NEGATIVE QUAL (NEGATIVE); UDS - PCP NEGATIVE QUAL (NEGATIVE); UDS - THC NEGATIVE QUAL (NEGATIVE)
[2020-07-11 01:07] LABS: CKMB 6.7 U/L (0.0-3.6); POTASSIUM - SERUM 2.1 mmol/L (3.5-5.1)
[2020-07-11 01:11] LABS: BILIRUBIN NEGATIVE (NEGATIVE); KETONE NEGATIVE (NEGATIVE); NITRITE POSITIVE (NEGATIVE); UROBILINOGEN 4 mg/dL (< 2)
[2020-07-11 01:12] LABS: BACTERIA MANY HPF (NONE SEEN); SQUAMOUS EPITHELIAL 0-5 HPF (0-4)
--- NOTE | 2020-07-11 12:15 | NUR ---
MD MCCLAIN CALLED AND IS ORDERING MRI ON PT, PT IS TO BE NPO FOR 4 HRS TO GET SCAN
--- NOTE | 2020-07-11 14:11 | NUR ---
PT IS BEING TRANSPORTED TO MRI AT THIS TIME, WILL GIVE PO K+ WHEN PT RETURNS
--- NOTE | 2020-07-11 17:02 | NUR ---
PT HAS SCD'S IN PLACE
--- NOTE | 2020-07-11 22:44 | NUR ---
PT PULLED IV OUT, STATES HE DOESNT WANT ANOTHER ONE, PT IS EATING AND DRINKING WELL AT THIS TIME
[2020-07-12 02:44] VITALS: BP 108/71; BMI 27.5
--- NOTE | 2020-07-12 02:45 | NUR ---
RECIVED PT FROM ER VIA WHEELCHAIR. PT ANSWERS MOST QUESTIONS APPROPRIATELY, APPEARS TO BE ORIENTATED TO SELF, PLACE AND SITUATION. TELEMERTY IN PLACE, 77 SR. PT ABLE TO AMBULATE AD CHANEL. EDUCATED ON CL AND NEEDS, VERBALIZED UNDERSTANDING. BED LOW, CL IN REACH.
[2020-07-12 04:00] VITALS: BP 148/69
--- NOTE | 2020-07-12 04:45 | NUR ---
PT LAYING IN BED EYES CLOSED, EVEN RESPIRATIONSM NO SIGNS OF DISTRESS. BED LOW, CL IN REACH.
[2020-07-12 06:48] LABS: BASOPHILS 0.7 % (0-2); EOSINOPHILS 7.2 % (0-7); LYMPHOCYTE ABS# 1.53 10x3/uL (1.32-3.57); LYMPHOCYTES 36.7 % (15-50); MCH 34.8 pg (26.0-34.0); MEAN PLATELET VOLUME 10.2 fL (7.4-10.4); MONOCYTES 16.5 % (2-11); NEUTROPHIL ABS# 1.62 10x3/uL (1.78-5.38); NEUTROPHILS 38.9 % (40-80); PLATELET COUNT 91 10x3/uL (130-400); RDW 16.8 % (11.5-14.5)
[2020-07-12 06:53] LABS: HEMATOCRIT 29.7 % (42.0-54.0); HEMOGLOBIN 10.4 g/dL (13.5-17.5); MCV 99.3 fL (80.0-100.0); RBC 2.99 10x6/uL (4.20-6.10); WBC 4.2 10x3/uL (4.8-10.8)
--- NOTE | 2020-07-12 07:10 | NUR ---
PT IS RESTING IN BED WITH EYES CLOSED. RESPIRAITONS ARE SHALLOW/EVEN AND UNLABORED. PT IS AROUSABLE WITH VERBAL STIMULATION AND IS DISORIENTED UPON AROUSAL. PT IS EASILY REORIENTED TO PLACE/TIME/SITUATION UPON AROUSAL BUT PT QUICKLY RETUNRS TO A RESTING WITH EYES CLOSED STATE. PIV TO LEFT HAND INFUSING A BANANA BAG PER ORDER AND WITHOUT DIFFICULTY. BS ACTIVE X 4. PT DENIES PRESENCE OF N/V/DYSPNEA AT THIS TIME. PT DENIES PRESENCE OF NUMBNESS/TINGLING TO BUE AND BLE. CUT AND COVER LINE WORKER IS ON AND WORKING PT IS RUNNING AT 78 SR PER CUT AND COVER LINE WORKER TECH. BED IS IN THE LOWEST POSITION. CALL LIGHT AND BEDSIDE TABLE ARE WITHIN REACH. SIDE RAILS X 2. PT DENIES FURTHER NEEDS. WILL CONT TO MONITOR.
[2020-07-12 07:12] LABS: ALKALINE PHOSPHATASE 166 U/L (30-120); ALT (SGPT) 23 U/L (10-68); BILIRUBIN - TOTAL 2.77 mg/dL (0.2-1.3); CALCIUM 8.3 mg/dL (8.5-10.1); CARBON DIOXIDE 22.5 mmol/L (21.0-32.0); CHLORIDE - SERUM 109 mmol/L (98-107); MAGNESIUM - SERUM 1.7 mg/dL (1.8-2.4); PROTEIN - SERUM 6.3 g/dL (6.4-8.2); SODIUM 141 mmol/L (136-145); eGFR NON AFRICAN AMERICAN 85 mL/min (90-120)
[2020-07-12 07:13] LABS: CALC OSMOLALITY 281 mosm/kg (275-300); GLUCOSE 151 mg/dL (74-106); UREA NITROGEN 8 mg/dL (7-18)
[2020-07-12 07:14] LABS: POTASSIUM - SERUM 2.5 mmol/L (3.5-5.1)
[2020-07-12 08:17] VITALS: BP 134/69
--- NOTE | 2020-07-12 10:50 | NUR ---
PT REPORTS PIV "BURNING". PIV REMOVED WITH CATHETER TIP INTACT. DRESSING APPLIED. 22G PIV RESITED TO RIGHT FA X 1 ATTEMPT. PT TOLERATED WELL.
[2020-07-12 11:16] LABS: PLATELET ESTIMATE DECREASED
[2020-07-12 11:18] LABS: ANISOCYTOSIS 1+; POLYCHROMASIA OCC
[2020-07-12 12:56] VITALS: BP 127/56
[2020-07-12 14:39] VITALS: BMI 27.4
[2020-07-12 16:14] VITALS: BP 141/71
--- NOTE | 2020-07-12 17:08 | NUR ---
PT IS RESTING IN BED WITH EYES CLOSED. RESPIRATIONS ARE EVEN AND UNLABORED. PT IS EASILY AROUSED WITH VERBAL STIMULATION AND IS AAO X 4 UPON AROUSAL AND ANSWERS ALL QUESTIONS APPROPRIATLEY. ALL CONSENTS FOR CT GUIDED BIOPSY SIGNED BY PT. PT DENIES FURTHER QUESTIONS/CONCERNS. PT STATES HE IS IN AGREEMENT WITH PROCEDURE AND DENIES FURTHER NEEDS. BED IS IN THE LOWEST POSITION. CALL LIGHT AND BEDSIDE TABLE ARE WITHIN REACH. SIDE RAILS X 2. PT DENIES FURTHER NEEDS. ALL SIGNED CONSENTS PLACED IN PT CHART. WILL CONT TO MONITOR.
[2020-07-12 20:00] VITALS: BP 141/67
[2020-07-13] VITALS: BP 136/89
[2020-07-13 04:00] VITALS: BP 141/79
--- NOTE | 2020-07-13 06:29 | NUR ---
ASSESSED AT THE BEGINNING OF THE SHIFT. PT IS ALERT AND ABLE TO VERBALIZE NEEDS. HE HAS BEEN UP TO BSC FREQUENTLY FOR DIARRHEA AND HAS GOTTEN IT EVERYWHERE. HE WAS GIVEN A SHOWER FOR SURGERY THIS AM BUT IT HAS BEEN A STRUGGLE TO KEEP HIM CLEAN. HE LAST WAS INCONT. OF URINE IN THE BED AND NEEDED A COMPLETE CLEAN UP AND BED CHANGE AT 0600. AT THIS TIME HE IS RESTING QUIET AND NO PROBLEMS.
[2020-07-13 06:37] LABS: BASOPHILS 0.5 % (0-2); HEMATOCRIT 30.4 % (42.0-54.0); HEMOGLOBIN 10.4 g/dL (13.5-17.5); LYMPHOCYTE ABS# 1.25 10x3/uL (1.32-3.57); LYMPHOCYTES 33.2 % (15-50); MCH 34.4 pg (26.0-34.0); MCHC 34.2 g/dL (31.0-37.0); MCV 100.7 fL (80.0-100.0); MEAN PLATELET VOLUME 10.4 fL (7.4-10.4); MONOCYTES 13.3 % (2-11); NEUTROPHIL ABS# 1.66 10x3/uL (1.78-5.38); PLATELET COUNT 88 10x3/uL (130-400); RBC 3.02 10x6/uL (4.20-6.10); RDW 17.3 % (11.5-14.5); WBC 3.8 10x3/uL (4.8-10.8)
[2020-07-13 06:46] LABS: APTT 43.8 SECONDS (22.8-39.4); INR 1.92 (0.85-1.17); PROTIME 20.4 SECONDS (11.6-15.0)
[2020-07-13 06:49] LABS: ALKALINE PHOSPHATASE 175 U/L (30-120); ALT (SGPT) 26 U/L (10-68); BILIRUBIN - TOTAL 2.11 mg/dL (0.2-1.3); CALCIUM 8.1 mg/dL (8.5-10.1); CARBON DIOXIDE 21.5 mmol/L (21.0-32.0); CHLORIDE - SERUM 113 mmol/L (98-107); CREATININE - SERUM 0.8 mg/dL (0.6-1.3); PROTEIN - SERUM 6.1 g/dL (6.4-8.2); SODIUM 143 mmol/L (136-145); UREA NITROGEN 6 mg/dL (7-18); eGFR NON AFRICAN AMERICAN > 90 mL/min (90-120)
[2020-07-13 07:13] LABS: CALC OSMOLALITY 281 mosm/kg (275-300); GLUCOSE 86 mg/dL (74-106); MAGNESIUM - SERUM 2.4 mg/dL (1.8-2.4)
[2020-07-13 07:14] LABS: POTASSIUM - SERUM 2.4 mmol/L (3.5-5.1)
--- NOTE | 2020-07-13 09:00 | NUR ---
IN BED, DENIES NEEDS AT THIS TIME. BED LOW POSITION, CALL LIGHT IN REACH. FREE FROM SIGNS OF DISTRESS. ALERT AND ORIENTED. WILL CONTINUE TO MONITOR.
[2020-07-13 09:21] VITALS: BP 130/72
--- NOTE | 2020-07-13 12:24 | NUR ---
SPOKE WITH CISCO IN IR WHO STATES PATIENT'S POTASSIUM TOO LOW FOR PROCEDURE TODAY, WELL WAITING A LAB TO COME BACK BEFORE PROCEDURE. STATES POSSIBLE PERFORM THURSDAY AND TO FEED PATIENT AND REPLACE POTASSIUM. ORDERS PLACED.
[2020-07-13 13:06] VITALS: BP 141/78
[2020-07-13 17:03] VITALS: BP 126/53
--- NOTE | 2020-07-13 18:05 | NUR ---
IN BED EATING DINNER. DENIES NEEDS. FREE FROM SIGNS OF DISTRESS. PATIENT STATED IV CAME OUT. RESITED IV TO LEFT WRIST 20 GUAGE.
[2020-07-13 21:02] VITALS: BP 139/71
--- NOTE | 2020-07-13 23:26 | NUR ---
PATIENT SITTING UP IN BED. NO S/S OF DISTRESS. ASSESSMENT COMPLETE. CLIR. BED IN LOWEST POSITION. DENIES ANY NEW NEEDS OR CONCERNS. WILL CONT TO MONITOR.
[2020-07-14 00:25] VITALS: BP 134/80
--- NOTE | 2020-07-14 02:47 | NUR ---
PATIENT AWAKE IN ROOM WATCHING TV. NO S/S OF DISTRESS. DENIES ANY NEEDS. WILL CONT TO MONITOR.
[2020-07-14 04:38] VITALS: BP 137/83
[2020-07-14 06:04] LABS: BASOPHILS 0.7 % (0-2); EOSINOPHILS 11.2 % (0-7); HEMATOCRIT 32.1 % (42.0-54.0); HEMOGLOBIN 11.1 g/dL (13.5-17.5); LYMPHOCYTE ABS# 1.06 10x3/uL (1.32-3.57); LYMPHOCYTES 37.1 % (15-50); MCHC 34.6 g/dL (31.0-37.0); MCV 101.3 fL (80.0-100.0); MEAN PLATELET VOLUME 10.1 fL (7.4-10.4); MONOCYTES 12.6 % (2-11); NEUTROPHILS 38.4 % (40-80); PLATELET COUNT 83 10x3/uL (130-400); RBC 3.17 10x6/uL (4.20-6.10); RDW 17.1 % (11.5-14.5); WBC 2.9 10x3/uL (4.8-10.8)
[2020-07-14 07:07] LABS: ALBUMIN 2.1 g/dL (3.4-5.0); ALKALINE PHOSPHATASE 210 U/L (30-120); ALT (SGPT) 32 U/L (10-68); BILIRUBIN - TOTAL 2.25 mg/dL (0.2-1.3); CALCIUM 7.7 mg/dL (8.5-10.1); CARBON DIOXIDE 23.2 mmol/L (21.0-32.0); CHLORIDE - SERUM 108 mmol/L (98-107); CREATININE - SERUM 0.9 mg/dL (0.6-1.3); PROTEIN - SERUM 6.4 g/dL (6.4-8.2); SODIUM 139 mmol/L (136-145); eGFR NON AFRICAN AMERICAN > 90 mL/min (90-120)
[2020-07-14 07:15] LABS: CALC OSMOLALITY 276 mosm/kg (275-300); GLUCOSE 132 mg/dL (74-106); UREA NITROGEN 4 mg/dL (7-18)
[2020-07-14 07:18] LABS: POTASSIUM - SERUM 2.8 mmol/L (3.5-5.1)
[2020-07-14 09:06] VITALS: BP 150/85
[2020-07-14 11:57] VITALS: BP 145/78
--- NOTE | 2020-07-14 12:32 | NUR ---
AROUSES TO VOICE. DENIES NEEDS AT THIS TIME. BED LOW POSITION, CALL LIGHT IN REACH. FREE FROM SIGNS OF DISTRESS. WILL CONTINUE TO MONITOR
[2020-07-14 18:04] VITALS: BP 150/85
[2020-07-14 20:00] VITALS: BP 145/69
[2020-07-15] VITALS: BP 147/80
--- NOTE | 2020-07-15 01:04 | NUR ---
PATIENT IV LEAKING. NEW 20G PIV IN PLACE TO LEFT AC. POTASSIUM 3.2. SUPPLEMENTED PER ELECTROLYTE PROTOCOL ORDER.
[2020-07-15 04:00] VITALS: BP 132/72
[2020-07-15 05:31] LABS: BASOPHILS 0.6 % (0-2); HEMATOCRIT 32.9 % (42.0-54.0); HEMOGLOBIN 11.3 g/dL (13.5-17.5); LYMPHOCYTE ABS# 1.31 10x3/uL (1.32-3.57); LYMPHOCYTES 39.7 % (15-50); MCH 34.6 pg (26.0-34.0); MCHC 34.3 g/dL (31.0-37.0); MCV 100.6 fL (80.0-100.0); MEAN PLATELET VOLUME 10.1 fL (7.4-10.4); MONOCYTES 13.3 % (2-11); NEUTROPHILS 39.4 % (40-80); PLATELET COUNT 79 10x3/uL (130-400); RBC 3.27 10x6/uL (4.20-6.10); RDW 16.8 % (11.5-14.5); WBC 3.3 10x3/uL (4.8-10.8)
[2020-07-15 06:16] LABS: ALBUMIN 2.1 g/dL (3.4-5.0); ALKALINE PHOSPHATASE 215 U/L (30-120); ALT (SGPT) 29 U/L (10-68); BILIRUBIN - TOTAL 2.05 mg/dL (0.2-1.3); CALC OSMOLALITY 275 mosm/kg (275-300); CALCIUM 7.9 mg/dL (8.5-10.1); CARBON DIOXIDE 22.7 mmol/L (21.0-32.0); CHLORIDE - SERUM 109 mmol/L (98-107); CREATININE - SERUM 0.7 mg/dL (0.6-1.3); GLUCOSE 111 mg/dL (74-106); PROTEIN - SERUM 6.7 g/dL (6.4-8.2); SODIUM 139 mmol/L (136-145); UREA NITROGEN 4 mg/dL (7-18); eGFR NON AFRICAN AMERICAN > 90 mL/min (90-120)
--- NOTE | 2020-07-15 08:07 | NUR ---
RESTING IN BED, CONFUSED, CONT TO MONITOR, IV INFUSING, PT WANTS REMOVED
[2020-07-15 09:04] VITALS: BP 131/71
[2020-07-15 12:43] VITALS: BP 111/59
[2020-07-15 16:35] VITALS: BP 127/70
--- NOTE | 2020-07-15 18:25 | MORECARE ---
CASE MANAGEMENT DISCHARGE SUMMARY PATIENT: TEENA MAYO UNIT: [id number] ADM DATE: 07/11/20 AGE: 50 : 74 SEX: M ROOM/BED: D.2232 AUTHOR: DOUGLAS DOTSON PHYSICIAN: REFERRING PHYSICIAN: NEREIDA CASILLAS DO DATE OF SERVICE: 07/15/20 Discharge Plan Patient Name: TEENA MAYO [facility] [facility] 1970 Planned Disposition: Home Anticipated Discharge Date: Discharge Date: Expected LOS: Initial Reviewer: [email or web address] Initial Review Date: 07/11/2020 Generated: 07/15/20 7:25 pm Comments DCP- Discharge Planning Updated by [email or web address]: Alon Helton on 07/15/20 5:[address] CM met with patient to complete DC plan and to evaluate needs. Patient stated that he lives alone. At discharge, the patient plans to return home and feels this is a safe discharge. CM discussed availability of home health, rehab services, and medical equipment. Patient declined HHS, SNF, IPR, and DME. Patient voiced no other needs at this time and is satisfied with DC plan. Transportation provider at discharge will be with his brother. CM will continue to follow and will assist as needed with dc plans/needs. Patient Name: TEENA MAYO Page [phone] at 1825 All edits/amendments must be made on the electronic document DICTATION DATE: 07/15/201824 DIGITAL PROJECT MANAGER: AMIE 07/15/201824 RPT#: [id number] DC DATE: STATUS: ADM IN [facility] [address] [place] [address] END OF REPORT
--- NOTE | 2020-07-15 18:32 | MORECARE ---
CASE MANAGEMENT DISCHARGE SUMMARY PATIENT: TEENA MAYO UNIT: [id number] ADM DATE: 07/11/20 AGE: 50 : 74 SEX: M ROOM/BED: D.2232 AUTHOR: DOUGLAS DOTSON PHYSICIAN: REFERRING PHYSICIAN: NEREIDA CASILLAS DO DATE OF SERVICE: 07/15/20 Discharge Plan Patient Name: TEENA MAYO Facility: [facility]:[place] : 1970 Planned Disposition: Home Anticipated Discharge Date: Discharge Date: Expected LOS: Initial Reviewer: MARIELLE Initial Review Date: 07/11/2020 Generated: 07/15/20 7:31 pm Comments DCP- Discharge Planning Updated by [email or web address]: Alon Helton on 07/15/20 5:[address] CM met with patient to complete DC plan and to evaluate needs. Patient stated that he lives alone. At discharge, the patient plans to return home and feels this is a safe discharge. CM discussed availability of home health, rehab services, and medical equipment. Patient declined HHS, SNF, IPR, and DME. Patient voiced no other needs at this time and is satisfied with DC plan. Transportation provider at discharge will be with his brother. CM will continue to follow and will assist as needed with dc plans/needs. DCPIA - Discharge Planning Initial Assessment Updated by [email or web address]: Alon Helton on 07/15/20 6:29 pm * Is the patient Alert and Oriented? Yes * How many steps to enter\exit or inside your home? 3/0 * PCP Dr. Wang * Pharmacy [facility] * Preadmission Environment Home Alone * ADLs Independent * Equipment None * Other Equipment n/a * Community resources currently utilized None * Please name any agencies selected above. n/a * Additional services required to return to the preadmission environment? No * Can the patient safely return to the preadmission environment? Yes * Has this patient been hospitalized within the prior 30 days at any hospital? No Last DP export: 07/15/20 5:25 p Patient Name: TEENA MAYO Page [phone] at 1832 All edits/amendments must be made on the electronic document DICTATION DATE: 07/15/201831 HAND CUTTER: AMIE 07/15/201831 RPT#: [id number] MI DATE: STATUS: ADM IN [facility] [address] [place] [address] END OF REPORT
[2020-07-15 20:00] VITALS: BP 139/70
--- NOTE | 2020-07-15 23:22 | NUR ---
BG WNL. BEDTIME SNACK PROVIDED. IV INFUSING W/O COMPLICATIONS TO LEFT AC. POTASSIUM ON REDRAW WAS 3.2, SUPPLEMENT ADMINISTERED PER ELECTROLYTE PROTOCOL.
[2020-07-16] VITALS: BP 130/68
[2020-07-16 04:00] VITALS: BP 131/65
--- NOTE | 2020-07-16 07:23 | NUR ---
REC'D IN BED WITH EYES CLOSED RESTING WELL AT THIS TIME. RESP EVEN AND UNLABORED WITH NO DISTRESS NOTE. CAN EXPRESS NEEDS AND WANTS. NO C/O NOTED OR VOICED. ASSESSMENT COMPLETED. C/L IN REACH AT BEDSIDE.
[2020-07-16 07:29] LABS: BASOPHILS 0.6 % (0-2); EOSINOPHILS 5.9 % (0-7); HEMATOCRIT 32.5 % (42.0-54.0); HEMOGLOBIN 10.9 g/dL (13.5-17.5); IMMATURE GRANULOCYTES 0.3 % (0-5); LYMPHOCYTE ABS# 1.27 10x3/uL (1.32-3.57); LYMPHOCYTES 39.4 % (15-50); MCH 34.7 pg (26.0-34.0); MCHC 33.5 g/dL (31.0-37.0); MEAN PLATELET VOLUME 10.6 fL (7.4-10.4); MONOCYTES 14.3 % (2-11); NEUTROPHIL ABS# 1.27 10x3/uL (1.78-5.38); NEUTROPHILS 39.5 % (40-80); PLATELET COUNT 84 10x3/uL (130-400); RBC 3.14 10x6/uL (4.20-6.10); RDW 17.2 % (11.5-14.5); WBC 3.2 10x3/uL (4.8-10.8)
[2020-07-16 07:30] LABS: MCV 103.5 fL (80.0-100.0)
[2020-07-16 07:45] LABS: ALKALINE PHOSPHATASE 203 U/L (30-120); ALT (SGPT) 25 U/L (10-68); BILIRUBIN - TOTAL 2.05 mg/dL (0.2-1.3); CALC OSMOLALITY 274 mosm/kg (275-300); CALCIUM 7.9 mg/dL (8.5-10.1); CARBON DIOXIDE 23.2 mmol/L (21.0-32.0); CHLORIDE - SERUM 110 mmol/L (98-107); CREATININE - SERUM 0.8 mg/dL (0.6-1.3); GLUCOSE 98 mg/dL (74-106); MAGNESIUM - SERUM 2.1 mg/dL (1.8-2.4); PROTEIN - SERUM 6.4 g/dL (6.4-8.2); SODIUM 139 mmol/L (136-145); UREA NITROGEN 4 mg/dL (7-18); eGFR NON AFRICAN AMERICAN > 90 mL/min (90-120)
[2020-07-16 07:55] LABS: POTASSIUM - SERUM 2.8 mmol/L (3.5-5.1)
[2020-07-16 08:52] VITALS: BP 119/61
[2020-07-16 11:49] LABS: INR 2.04 (0.85-1.17); PROTIME 21.4 SECONDS (11.6-15.0)
[2020-07-16 12:19] VITALS: BP 112/88
--- NOTE | 2020-07-16 12:39 | NUR ---
CALLED TO INFORMED IR THAT MELISSA STILL WANTED LIVER BIOPSY PER MAHESH
[2020-07-16 12:46] LABS: PLATELET ESTIMATE DECREASED
[2020-07-16 12:47] LABS: ANISOCYTOSIS OCC; ROULEAUX OCC
--- NOTE | 2020-07-16 12:53 | NUR ---
PT JUST GOT OUT OF SHOWER, RECONNECTED IV, EATING LUNCH. NO CURRENT S/S OF DISTRESS AT THIS TIME, DENIES CURRENT NEEDS, WILL CONT TO MONITOR.
--- NOTE | 2020-07-16 14:50 | NUR ---
Nutrition Follow-up Diet: Regular (NPO at midnight for possible liver biopsy tomorrow) PO intake: 90-100% x all recorded meals recently Last BM: 07/16/20. Wt: 170# (07/12/20) Meds noted: probiotics, lactulose, banana bag, SSI, NS@100 Labs noted: K 2.8(L), alk phos 203(H), ammonia 84(H), alb 2.0(L) Recommend resume Regular diet as soon as medically feasible after proceedure tomorrow. RD will follow-up within 5-7 days.
[2020-07-16 16:03] VITALS: BP 110/61
[2020-07-16 21:36] VITALS: BP 131/74
--- NOTE | 2020-07-16 23:16 | NUR ---
PATIENT TO POSSIBLY HAVE PROCEDURE IN AM. PATIENT VERBALIZED UNDERSTANDING THAT HE IS TO BE NPO AT MIDNIGHT. BG ELEVATED, S/S ADMINISTERED. PIV TO LEFT AC PATENT.
[2020-07-17 01:23] VITALS: BP 126/67
[2020-07-17 04:00] VITALS: BP 113/62
--- NOTE | 2020-07-17 06:29 | NUR ---
PATIENT NPO SINCE MIDNIGHT. G SHOWER DONE THIS AM.
[2020-07-17 06:33] LABS: BASOPHILS 0.7 % (0-2); EOSINOPHILS 6.9 % (0-7); HEMATOCRIT 32.1 % (42.0-54.0); HEMOGLOBIN 10.7 g/dL (13.5-17.5); LYMPHOCYTE ABS# 1.21 10x3/uL (1.32-3.57); LYMPHOCYTES 39.5 % (15-50); MCH 34.5 pg (26.0-34.0); MCHC 33.3 g/dL (31.0-37.0); MCV 103.5 fL (80.0-100.0); MEAN PLATELET VOLUME 9.7 fL (7.4-10.4); MONOCYTES 11.4 % (2-11); NEUTROPHIL ABS# 1.27 10x3/uL (1.78-5.38); NEUTROPHILS 41.5 % (40-80); PLATELET COUNT 82 10x3/uL (130-400); RDW 16.9 % (11.5-14.5); WBC 3.1 10x3/uL (4.8-10.8)
[2020-07-17 06:36] LABS: INR 1.91 (0.85-1.17); PROTIME 20.3 SECONDS (11.6-15.0)
[2020-07-17 06:52] LABS: ALBUMIN 1.9 g/dL (3.4-5.0); ALKALINE PHOSPHATASE 202 U/L (30-120); ALT (SGPT) 25 U/L (10-68); BILIRUBIN - TOTAL 1.54 mg/dL (0.2-1.3); CALC OSMOLALITY 282 mosm/kg (275-300); CARBON DIOXIDE 24.6 mmol/L (21.0-32.0); CHLORIDE - SERUM 111 mmol/L (98-107); CREATININE - SERUM 0.8 mg/dL (0.6-1.3); GLUCOSE 111 mg/dL (74-106); POTASSIUM - SERUM 3.1 mmol/L (3.5-5.1); PROTEIN - SERUM 6.2 g/dL (6.4-8.2); SODIUM 143 mmol/L (136-145); UREA NITROGEN 3 mg/dL (7-18); eGFR NON AFRICAN AMERICAN > 90 mL/min (90-120)
[2020-07-17 10:27] VITALS: BP 124/71
[2020-07-17 13:58] VITALS: BP 100/54
[2020-07-17 18:31] VITALS: BP 102/51
[2020-07-17 20:00] VITALS: BP 108/58
[2020-07-18 02:02] VITALS: BP 108/59
[2020-07-18 06:34] VITALS: BP 112/55
[2020-07-18 07:23] VITALS: BP 112/51
[2020-07-18 07:25] LABS: HEMATOCRIT 30.4 % (42.0-54.0); HEMOGLOBIN 10.1 g/dL (13.5-17.5); LYMPHOCYTE ABS# 1.07 10x3/uL (1.32-3.57); MCH 34.5 pg (26.0-34.0); MCHC 33.2 g/dL (31.0-37.0); MCV 103.8 fL (80.0-100.0); MEAN PLATELET VOLUME 10.6 fL (7.4-10.4); NEUTROPHIL ABS# 1.18 10x3/uL (1.78-5.38); PLATELET COUNT 82 10x3/uL (130-400); RBC 2.93 10x6/uL (4.20-6.10); RDW 16.7 % (11.5-14.5); WBC 2.9 10x3/uL (4.8-10.8)
[2020-07-18 07:41] LABS: ALBUMIN 1.9 g/dL (3.4-5.0); ALKALINE PHOSPHATASE 223 U/L (30-120); ALT (SGPT) 25 U/L (10-68); BILIRUBIN - TOTAL 1.66 mg/dL (0.2-1.3); CALC OSMOLALITY 277 mosm/kg (275-300); CARBON DIOXIDE 22.3 mmol/L (21.0-32.0); CHLORIDE - SERUM 109 mmol/L (98-107); CREATININE - SERUM 0.8 mg/dL (0.6-1.3); POTASSIUM - SERUM 3.1 mmol/L (3.5-5.1); PROTEIN - SERUM 5.8 g/dL (6.4-8.2); SODIUM 139 mmol/L (136-145); UREA NITROGEN 3 mg/dL (7-18); eGFR NON AFRICAN AMERICAN > 90 mL/min (90-120)
[2020-07-18 07:42] LABS: GLUCOSE 160 mg/dL (74-106)
[2020-07-18 08:09] LABS: INR 1.91 (0.85-1.17); PROTIME 20.3 SECONDS (11.6-15.0)
--- NOTE | 2020-07-18 09:09 | NUR ---
0700 - RECEIVED PT FROM OFFGOING NURSE. PT RESTING QUIETLY IN BED. BED LOW AND LOCKED. CALL LIGHT IN REACH. WILL CONTINUE TO MONITOR.
[2020-07-18 11:39] VITALS: BP 110/58
[2020-07-18 13:50] LABS: EOSINOPHILS 3 % (0-7); LYMPHOCYTES 42 % (15-50); MONOCYTES 8 % (2-11); NEUTROPHILS 47 % (40-80); PLATELET ESTIMATE DECREASED; ROULEAUX OCC
[2020-07-18 15:29] VITALS: BP 105/55
[2020-07-18 20:00] VITALS: BP 109/55
[2020-07-19] VITALS: BP 117/55
[2020-07-19 04:00] VITALS: BP 108/53
--- NOTE | 2020-07-19 04:42 | NUR ---
Pt is in bed resting at this time. IV infusing per order. No c/o pain/discomfort t/o the night, Pt has slept on and off.
[2020-07-19 06:10] LABS: BASOPHILS 0 % (0-2); EOSINOPHILS 5.1 % (0-7); HEMATOCRIT 29.1 % (42.0-54.0); HEMOGLOBIN 9.7 g/dL (13.5-17.5); LYMPHOCYTE ABS# 0.87 10x3/uL (1.32-3.57); LYMPHOCYTES 36.9 % (15-50); MCH 34.6 pg (26.0-34.0); MCHC 33.3 g/dL (31.0-37.0); MCV 103.9 fL (80.0-100.0); MEAN PLATELET VOLUME 11.1 fL (7.4-10.4); NEUTROPHIL ABS# 1.04 10x3/uL (1.78-5.38); PLATELET COUNT 82 10x3/uL (130-400); RDW 16.3 % (11.5-14.5); WBC 2.4 10x3/uL (4.8-10.8)
[2020-07-19 06:22] LABS: INR 1.99 (0.85-1.17); PROTIME 20.9 SECONDS (11.6-15.0)
[2020-07-19 07:12] LABS: ALBUMIN 1.8 g/dL (3.4-5.0); ALKALINE PHOSPHATASE 207 U/L (30-120); ALT (SGPT) 21 U/L (10-68); BILIRUBIN - TOTAL 1.53 mg/dL (0.2-1.3); CALC OSMOLALITY 278 mosm/kg (275-300); CALCIUM 7.9 mg/dL (8.5-10.1); CHLORIDE - SERUM 110 mmol/L (98-107); CREATININE - SERUM 0.8 mg/dL (0.6-1.3); GLUCOSE 145 mg/dL (74-106); POTASSIUM - SERUM 3.1 mmol/L (3.5-5.1); PROTEIN - SERUM 5.7 g/dL (6.4-8.2); SODIUM 140 mmol/L (136-145); eGFR NON AFRICAN AMERICAN > 90 mL/min (90-120)
[2020-07-19 07:14] LABS: UREA NITROGEN 4 mg/dL (7-18)
--- NOTE | 2020-07-19 07:42 | NUR ---
ALERT AND ORIENTED. ASSESSMENT COMPLETE. DENIES NEEDS. BED LOW. CALL ESTRADA AND PERSONAL ITEMS IN REACH. WILL CONTINUE TO MONITOR.
--- NOTE | 2020-07-19 08:14 | NUR ---
PATIENT REFUSES SCDS. EDUCATION PROVIDED.
[2020-07-19 09:00] VITALS: BP 109/51
--- NOTE | 2020-07-19 09:45 | NUR ---
PATIENT STATES WANTS TO TALK TO SISTER, ELHAM IN LAB. ELHAM NOTIFIED AND STATES WILL COME SEE PATIENT LATER.
[2020-07-19 13:17] VITALS: BP 132/67
[2020-07-19 16:09] VITALS: BP 104/57
[2020-07-19 20:00] VITALS: BP 111/55
--- NOTE | 2020-07-19 20:00 | NUR ---
ALERT RESTING IN BED DENIES PAIN OR NEEDS AT THIS TIME, SEE SHIFT ASSESSMENT CALL LIGHT IN REACH
[2020-07-20] VITALS: BP 114/60
--- NOTE | 2020-07-20 07:39 | NUR ---
ALERT AND ORIENTED. ASSESSMENT COMPLETE. DENIES NEEDS. BED LOW. CALL ESTRADA AND PERSONAL ITEMS IN REACH. WILL CONTINUE TO MONITOR.
[2020-07-20 07:51] LABS: INR 2.02 (0.85-1.17); PROTIME 21.3 SECONDS (11.6-15.0)
[2020-07-20 08:02] LABS: ALBUMIN 1.8 g/dL (3.4-5.0); ALKALINE PHOSPHATASE 180 U/L (30-120); ALT (SGPT) 21 U/L (10-68); BILIRUBIN - TOTAL 1.64 mg/dL (0.2-1.3); CALC OSMOLALITY 275 mosm/kg (275-300); CALCIUM 8.1 mg/dL (8.5-10.1); CARBON DIOXIDE 25.3 mmol/L (21.0-32.0); CHLORIDE - SERUM 111 mmol/L (98-107); CREATININE - SERUM 0.8 mg/dL (0.6-1.3); GLUCOSE 107 mg/dL (74-106); PROTEIN - SERUM 6.1 g/dL (6.4-8.2); SODIUM 140 mmol/L (136-145); UREA NITROGEN 3 mg/dL (7-18); eGFR NON AFRICAN AMERICAN > 90 mL/min (90-120)
[2020-07-20 08:15] VITALS: BP 116/64
[2020-07-20 08:43] LABS: HEMATOCRIT 30.9 % (42.0-54.0); HEMOGLOBIN 10.2 g/dL (13.5-17.5); LYMPHOCYTE ABS# 1.02 10x3/uL (1.32-3.57); MCH 34.2 pg (26.0-34.0); MCV 103.7 fL (80.0-100.0); MEAN PLATELET VOLUME 10.3 fL (7.4-10.4); NEUTROPHIL ABS# 1.32 10x3/uL (1.78-5.38); PLATELET COUNT 83 10x3/uL (130-400); RBC 2.98 10x6/uL (4.20-6.10); RDW 16.2 % (11.5-14.5); WBC 2.8 10x3/uL (4.8-10.8)
--- NOTE | 2020-07-20 09:47 | NUR ---
PATIENT C/O IV IN LEFT AC CAUSING PAIN. STILL FLUSHES WELL. BUT REMOVED WITH TIP INTACT PER PATIENT'S REQUEST. NURSING STUDENTS ATTEMPTED TO SITE IV TO RFA TWICE WITHOUT SUCCESS. RESITED TO RIGHT WRIST BY NURSE AFTER ONE ATTEMPT WITH 22 GAUGE.
[2020-07-20 11:19] LABS: EOSINOPHILS 3 % (0-7); LYMPHOCYTES 31 % (15-50); MONOCYTES 13 % (2-11); NEUTROPHILS 52 % (40-80); PLATELET ESTIMATE DECREASED
[2020-07-20 11:20] LABS: ROULEAUX OCC
[2020-07-20 13:27] VITALS: BP 106/54
[2020-07-20 17:35] VITALS: BP 114/61
[2020-07-20 20:00] VITALS: BP 112/77
--- NOTE | 2020-07-20 21:00 | NUR ---
AWAKE,ALERT.NO COMPLAINTS VOICED. RESP EVEN AN UNLABORED. NO DISTRESS NOTED. IV TO RIGHT WRIST INTACT WITHOUT REDNESS OR EDEMA NOTED. CL IN REACH
[2020-07-21 04:38] LABS: BASOPHILS 0.4 % (0-2); EOSINOPHILS 5.4 % (0-7); HEMATOCRIT 29.9 % (42.0-54.0); HEMOGLOBIN 9.9 g/dL (13.5-17.5); LYMPHOCYTE ABS# 0.94 10x3/uL (1.32-3.57); LYMPHOCYTES 36.3 % (15-50); MCH 34.3 pg (26.0-34.0); MCHC 33.1 g/dL (31.0-37.0); MCV 103.5 fL (80.0-100.0); MEAN PLATELET VOLUME 10.5 fL (7.4-10.4); MONOCYTES 13.1 % (2-11); NEUTROPHIL ABS# 1.16 10x3/uL (1.78-5.38); NEUTROPHILS 44.8 % (40-80); PLATELET COUNT 82 10x3/uL (130-400); RBC 2.89 10x6/uL (4.20-6.10); RDW 15.8 % (11.5-14.5); WBC 2.6 10x3/uL (4.8-10.8)
[2020-07-21 04:56] LABS: ALBUMIN 1.8 g/dL (3.4-5.0); ALKALINE PHOSPHATASE 183 U/L (30-120); ALT (SGPT) 18 U/L (10-68); BILIRUBIN - TOTAL 1.41 mg/dL (0.2-1.3); CALC OSMOLALITY 274 mosm/kg (275-300); CARBON DIOXIDE 22.9 mmol/L (21.0-32.0); CHLORIDE - SERUM 110 mmol/L (98-107); CREATININE - SERUM 0.9 mg/dL (0.6-1.3); GLUCOSE 101 mg/dL (74-106); POTASSIUM - SERUM 3.2 mmol/L (3.5-5.1); PROTEIN - SERUM 5.6 g/dL (6.4-8.2); SODIUM 140 mmol/L (136-145); eGFR NON AFRICAN AMERICAN > 90 mL/min (90-120)
[2020-07-21 04:58] LABS: UREA NITROGEN 2 mg/dL (7-18)
[2020-07-21 04:59] VITALS: BP 106/62
[2020-07-21 05:03] LABS: INR 1.94 (0.85-1.17); PROTIME 20.6 SECONDS (11.6-15.0)
--- NOTE | 2020-07-21 08:11 | NUR ---
IN BED WITH EYES CLOSED, EASILY AROUSES TO VOICE. ADMINISTERED MORNING MEDICAITON, NO DIFFICULTIES. RESTING COMFORTABLY IN BED. DENIES ANY NEEDS AT THIS TIME. BED IN LOWEST POSITION, BED RAILS X2, CALL LIGHT WITHIN REACH. WILL CONTINUE POC.
[2020-07-21 08:54] VITALS: BP 111/55
[2020-07-21 10:07] LABS: MAGNESIUM - SERUM 1.6 mg/dL (1.8-2.4)
--- NOTE | 2020-07-21 11:12 | NUR ---
IN BED WITH EYES CLOSED, EASILY AROUSES TO VOICE. 2UNITS INSULIN PER SLDIING SCALE FOR SUGAR OF 175. DENIES ANY NEEDS. WILL CONTINUE POC.
--- NOTE | 2020-07-21 13:30 | NUR ---
RESTING COMFORTABLY, AROUSES TO VOICE. DENIES ANY NEEDS. WILL CONTINUE POC.
--- NOTE | 2020-07-21 13:42 | NUR ---
I have reviewed this patient and I concur with the Shift Assessment completed by the Licensed Practical Nurse today this shift.
[2020-07-21 14:48] VITALS: BP 113/52
--- NOTE | 2020-07-21 16:47 | NUR ---
ADMINISTERED MEDICATION, NO DIFFICULTIES. RESTING COMFORTABLY IN BED. DENIES ANY NEEDS AT THIS TIME. WILL CONTINUE POC.
[2020-07-21 17:51] VITALS: BP 106/55
[2020-07-21 20:00] VITALS: BP 112/55
--- NOTE | 2020-07-21 20:00 | NUR ---
WATCHING TV WITH NO COMPLAINTS VOICED. RESP UNALBORED. ABD REMAINS DISTENDED. IV TO RIGHT WRIST INTACT WITHOU REDNESS OR EDEMA NOTED. CL IN REACH
[2020-07-22] VITALS: BP 111/61
[2020-07-22 04:00] VITALS: BP 121/69
--- NOTE | 2020-07-22 04:39 | NUR ---
I have reviewed this patient and I concur with the Shift Assessment completed by the Licensed Practical Nurse today this shift.
[2020-07-22 05:15] LABS: HEMATOCRIT 31.3 % (42.0-54.0); HEMOGLOBIN 10.3 g/dL (13.5-17.5); LYMPHOCYTE ABS# 0.97 10x3/uL (1.32-3.57); MCH 34.1 pg (26.0-34.0); MCHC 32.9 g/dL (31.0-37.0); MCV 103.6 fL (80.0-100.0); MEAN PLATELET VOLUME 10.8 fL (7.4-10.4); NEUTROPHIL ABS# 1.18 10x3/uL (1.78-5.38); PLATELET COUNT 83 10x3/uL (130-400); RBC 3.02 10x6/uL (4.20-6.10); RDW 15.7 % (11.5-14.5); WBC 2.7 10x3/uL (4.8-10.8)
[2020-07-22 05:24] LABS: BASOPHILS 1 % (0-2); EOSINOPHILS 8 % (0-7); LYMPHOCYTES 29 % (15-50); MONOCYTES 15 % (2-11); NEUTROPHILS 47 % (40-80); PLATELET ESTIMATE DECREASED
[2020-07-22 05:57] LABS: ALBUMIN 1.8 g/dL (3.4-5.0); ALKALINE PHOSPHATASE 183 U/L (30-120); ALT (SGPT) 14 U/L (10-68); CALCIUM 7.8 mg/dL (8.5-10.1); CHLORIDE - SERUM 111 mmol/L (98-107); CREATININE - SERUM 0.9 mg/dL (0.6-1.3); GLUCOSE 107 mg/dL (74-106); PROTEIN - SERUM 5.9 g/dL (6.4-8.2); SODIUM 141 mmol/L (136-145); eGFR NON AFRICAN AMERICAN > 90 mL/min (90-120)
[2020-07-22 05:59] LABS: INR 1.94 (0.85-1.17); PROTIME 20.6 SECONDS (11.6-15.0)
[2020-07-22 06:00] LABS: CALC OSMOLALITY 277 mosm/kg (275-300); POTASSIUM - SERUM 3.5 mmol/L (3.5-5.1); UREA NITROGEN 4 mg/dL (7-18)
--- NOTE | 2020-07-22 08:40 | NUR ---
PT SITTING UP IN BED WATCHING TV. RESP EVEN AND UNLABORED. PT DENIES PAIN AT THIS TIME. IV TO RIGHT WRIST WITH NS @ 100ML/HR INFUSING VIA PUMP. SITE WITHOUT REDNESS OR EDEMA. DENIES FURTHER NEEDS AT THIS TIME. CL WITHIN REACH. ENCOURAGED TO CALL WITH NEEDS. CONTINUE POC
[2020-07-22 09:27] VITALS: BP 106/64
[2020-07-22 15:22] VITALS: BP 112/51
[2020-07-22 18:00] VITALS: BP 102/50
--- NOTE | 2020-07-22 19:00 | NUR ---
BEDSIDE REPORT RECEIVED AND CARE OF PT ASSUMED. PT LYING ON LEFT SIDE WITH EYES CLOSED AND EASY RESPIRATIONS. IV TO RIGHT WRIST PATENT WITH NS INFUSING AT 100 ML/HR. TELEMETRY IN USE PER ORDER AND READING SB AT THIS ASSESSMENT. WILL MONITOR FOR NEEDS.
[2020-07-22 20:00] VITALS: BP 103/48
--- NOTE | 2020-07-22 20:31 | NUR ---
HS MEDICATIONS GIVEN. FSBS 167 THIS CHECK REQUIRING COVERAGE WITH 2 UNITS OF INSUSLIN PER SLIDING SCALE.
[2020-07-23 04:00] VITALS: BP 110/59
--- NOTE | 2020-07-23 05:10 | NUR ---
PT SHOWERED AND ALL LINENS AND GOWN CHANGED.
[2020-07-23 08:29] VITALS: BP 122/64
[2020-07-23 09:25] LABS: BASOPHILS 0.8 % (0-2); EOSINOPHILS 4.6 % (0-7); HEMATOCRIT 31.8 % (42.0-54.0); HEMOGLOBIN 10.7 g/dL (13.5-17.5); LYMPHOCYTE ABS# 0.88 10x3/uL (1.32-3.57); LYMPHOCYTES 33.5 % (15-50); MCH 34.9 pg (26.0-34.0); MCHC 33.6 g/dL (31.0-37.0); MCV 103.6 fL (80.0-100.0); MEAN PLATELET VOLUME 9.9 fL (7.4-10.4); MONOCYTES 12.5 % (2-11); NEUTROPHIL ABS# 1.28 10x3/uL (1.78-5.38); NEUTROPHILS 48.6 % (40-80); PLATELET COUNT 78 10x3/uL (130-400); RBC 3.07 10x6/uL (4.20-6.10); RDW 15.2 % (11.5-14.5); WBC 2.6 10x3/uL (4.8-10.8)
[2020-07-23 09:34] LABS: INR 1.77 (0.85-1.17); PROTIME 19.1 SECONDS (11.6-15.0)
[2020-07-23 09:37] LABS: ALBUMIN 1.9 g/dL (3.4-5.0); ALKALINE PHOSPHATASE 166 U/L (30-120); BILIRUBIN - TOTAL 1.84 mg/dL (0.2-1.3); CALC OSMOLALITY 273 mosm/kg (275-300); CALCIUM 7.7 mg/dL (8.5-10.1); CARBON DIOXIDE 25.5 mmol/L (21.0-32.0); CHLORIDE - SERUM 107 mmol/L (98-107); CREATININE - SERUM 0.9 mg/dL (0.6-1.3); GLUCOSE 115 mg/dL (74-106); SODIUM 138 mmol/L (136-145); UREA NITROGEN 4 mg/dL (7-18); eGFR NON AFRICAN AMERICAN > 90 mL/min (90-120)
[2020-07-23 09:42] LABS: ALT (SGPT) 22 U/L (10-68)
[2020-07-23 09:43] LABS: POTASSIUM - SERUM 2.9 mmol/L (3.5-5.1)
[2020-07-23 12:43] VITALS: BP 113/54
--- NOTE | 2020-07-23 13:57 | NUR ---
Nutrition follow-up: Diet order: regular PO intake 100% of all meals Labs reviewed WT: 170# +BM, loose due to lactulose PO intake good at this time RD will reassess: 07/26/20
[2020-07-23 16:23] VITALS: BP 108/48
--- NOTE | 2020-07-23 19:00 | NUR ---
BEDSIDE REPORT RECEIVED AND CARE OF PT ASSUMED. PT LYING IN SUPINE POSITION WITH EYES CLOSED. IV TO LEFT WRIST PATENT WITH MVI INFUSING AT 125 ML/HR. TELEMETRY IN PLACE AND READING SR AT THIS ASSESSMENT. WILL MONITOR FOR NEEDS.
--- NOTE | 2020-07-23 19:30 | NUR ---
PT CONSENTED FOR CT GUIDED LIVER BX TO BE PERFORMED IN AM.
[2020-07-23 20:00] VITALS: BP 116/62
--- NOTE | 2020-07-23 21:05 | NUR ---
HS MEDICATIONS GIVEN. FSBS 124 THIS CHECK REQUIRING NO COVERAGE PER SLIDING SCALE.
--- NOTE | 2020-07-23 21:30 | NUR ---
GAVE X2 ORANGE SHERBET FOR HS SNACK.
[2020-07-24] VITALS: BP 124/62
--- NOTE | 2020-07-24 | NUR ---
NPO STATUS BEGINS NOW. SIGNAGE PLACED ON DOOR.
--- NOTE | 2020-07-24 03:56 | NUR ---
HIBACLENS BATH PERFORMED.
[2020-07-24 04:00] VITALS: BP 116/63
[2020-07-24 06:50] LABS: HEMATOCRIT 29.5 % (42.0-54.0); HEMOGLOBIN 9.8 g/dL (13.5-17.5); LYMPHOCYTE ABS# 1.05 10x3/uL (1.32-3.57); MCH 34.4 pg (26.0-34.0); MCHC 33.2 g/dL (31.0-37.0); MCV 103.5 fL (80.0-100.0); MEAN PLATELET VOLUME 10.2 fL (7.4-10.4); NEUTROPHIL ABS# 1.19 10x3/uL (1.78-5.38); PLATELET COUNT 80 10x3/uL (130-400); RBC 2.85 10x6/uL (4.20-6.10); RDW 15.2 % (11.5-14.5); WBC 2.7 10x3/uL (4.8-10.8)
[2020-07-24 07:05] LABS: INR 1.87 (0.85-1.17)
[2020-07-24 07:07] LABS: ALBUMIN 1.8 g/dL (3.4-5.0); ALKALINE PHOSPHATASE 169 U/L (30-120); ALT (SGPT) 17 U/L (10-68); BILIRUBIN - TOTAL 1.35 mg/dL (0.2-1.3); CALC OSMOLALITY 274 mosm/kg (275-300); CALCIUM 7.7 mg/dL (8.5-10.1); CARBON DIOXIDE 22.9 mmol/L (21.0-32.0); CHLORIDE - SERUM 111 mmol/L (98-107); CREATININE - SERUM 0.9 mg/dL (0.6-1.3); GLUCOSE 88 mg/dL (74-106); POTASSIUM - SERUM 3.6 mmol/L (3.5-5.1); PROTEIN - SERUM 5.7 g/dL (6.4-8.2); SODIUM 140 mmol/L (136-145); UREA NITROGEN 3 mg/dL (7-18); eGFR NON AFRICAN AMERICAN > 90 mL/min (90-120)
[2020-07-24 09:18] LABS: EOSINOPHILS 4 % (0-7); LYMPHOCYTES 36 % (15-50); MONOCYTES 15 % (2-11); NEUTROPHILS 45 % (40-80); PLATELET ESTIMATE DECREASED
[2020-07-24 09:28] VITALS: BP 116/66
[2020-07-24] MEDS ORDERED: CHRONULAC30 ML PO (13:36)
--- NOTE | 2020-07-24 19:52 | NUR ---
DISCHARGE INSTRUCTIONS REVIEWED AND SIGNED, ALL QUESTIONS ANSWERED, PT VERBALIZES UNDERSTANDING, IV REMOVED, TIP INTACT, PT LEFT VIA WHEELCHAIR, NO SIGNS OF DISTRESS NOTED
--- NOTE | 2020-07-25 09:16 | MORECARE ---
CASE MANAGEMENT DISCHARGE SUMMARY PATIENT: TEENA MAYO UNIT: [id number] ADM DATE: 07/11/20 AGE: 50 : 74 SEX: M ROOM/BED: D.2232 AUTHOR: DOUGLAS DOTSON PHYSICIAN: REFERRING PHYSICIAN: NEREIDA CASILLAS DO DATE OF SERVICE: 07/25/20 Discharge Plan Patient Name: TEENA MAYO Facility: [facility]:[place] : 1970 Planned Disposition: Home Anticipated Discharge Date: Discharge Date: 07/24/2020 Expected LOS: Initial Reviewer: [email or web address] Initial Review Date: 07/11/2020 Generated: 07/25/20 10:15 am DCP- Discharge Planning Updated by MARIELLE: Alon Helton on 07/15/20 5:[address] CM met with patient to complete DC plan and to evaluate needs. Patient stated that he lives alone. At discharge, the patient plans to return home and feels this is a safe discharge. CM discussed availability of home health, rehab services, and medical equipment. Patient declined HHS, SNF, IPR, and DME. Patient voiced no other needs at this time and is satisfied with DC plan. Transportation provider at discharge will be with his brother. CM will continue to follow and will assist as needed with dc plans/needs. DCPIA - Discharge Planning Initial Assessment Updated by MARIELLE: Alon Helton on 07/15/20 6:29 pm * Is the patient Alert and Oriented? Yes * How many steps to enter\exit or inside your home? 3/0 * PCP Dr. Wang * Pharmacy [facility] * Preadmission Environment Home Alone * ADLs Independent * Equipment None * Other Equipment n/a * Community resources currently utilized None * Please name any agencies selected above. n/a * Additional services required to return to the preadmission environment? No * Can the patient safely return to the preadmission environment? Yes * Has this patient been hospitalized within the prior 30 days at any hospital? No Last DP export: 07/15/20 5:32 p Patient Name: TEENA MAYO Page [phone] at 0916 All edits/amendments must be made on the electronic document DICTATION DATE: 07/25/20915 STRING CUTTER: AMIE 07/25/20915 RPT#: [id number] DC DATE:07/24/20 STATUS: DIS IN [facility] [address] [place] [address] END OF REPORT
[2020-07-25 16:47] VITALS: Ht 167.6 cm; Wt 77.1 kg
== END 2020-07-24 17:30 | disposition home or self-care (01) | DRG 442 ==
LOC: D.ER 23:18 → D.EDHOLD 07-11 02:18 → D.MS 07-11 02:18
PROVIDERS: Emergency Medicine; Family Medicine; Radiology Vascular & Interventional Radiology; ADMIT Family Medicine; ATTEND Family Medicine
DX: K72.90 Hepatic failure, unspecified without coma (principal); E72.20 Disorder of urea cycle metabolism, unspecified; N39.0 Urinary tract infection, site not specified; D61.818 Other pancytopenia; E44.0 Moderate protein-calorie malnutrition; E80.6 Other disorders of bilirubin metabolism; E87.6 Hypokalemia; E83.42 Hypomagnesemia; K76.9 Liver disease, unspecified; Z68.27 Body mass index [BMI] 27.0-27.9, adult